=== PATIENT | female | born 1960 | race Hispanic/Latino ===

== ENCOUNTER 2017-10-14 13:07 | Inpatient (IN) | payer MEDICARE, OTHER ==
[~2017-10-14] VITALS: Ht 160 cm; Wt 147.0 kg
[~2017-10-14 13:07] MED LIST: AMBIEN5 MG PO; BACTRIM DS TAB1 EACH PO; CALCIUM PO; CENTRUM SILVER1 EAC3 PO; CEPHALEXIN500 MG PO; CLONAZEPAM0.5 MG PO; CYMBALTA60 MG PO; DICYCLOMINE HCL20 MG PO; FENTANYL1 EAC1 TD; FOLIC ACID PO; GABAPENTIN300 MG PO; LEVETIRACETAM250 MG PO; METOCLOPRAMIDE10 MG PO; MUPIROCIN22 GM TOP; NORCO 10-325 T1 EACH PO; ONDANSETRON ODT8 MG PO; PANTOPRAZOLE SO40 MG PO; PROBIOTIC PO; RIFAMPIN300 MG PO; VITAMIN B-12 PO; ZESTRIL20 MG PO
[2017-10-14] MEDS ORDERED: ONDANSETRON HCL 4 MG ORAL DISINTEGRATING TAB PO STA (13:09)
--- OUTSIDE RECORDS SUMMARY | 2017-10-14 13:10 | XMS REPORT ---
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 Saman Mendez OD Lora's palsy PRESBYOPIA 367.4 Active Saman Mendez OD Presbyopia EXAMINATION, DENTAL V72.2 Active Kit Landaverde DDS Special investigations and examinations - Dental examination DENTAL CARIES EXTENDING INTO DENTINE 521.02 Active Jess Upright DDS Dental caries extending into dentine EXAMINATION, DENTAL V72.2 Inactive Kit Landaverde DDS Special investigations and examinations - Dental examination EXAMINATION, DENTAL ICD-V72.2 Inactive Merle Redmond EXAMINATION, DENTAL V72.2 Inactive Jess Upright DDS Special investigations and examinations - Dental examination EXAMINATION, DENTAL ICD-V72.2 Inactive Jess Upright DDS EXAMINATION, DENTAL V72.2 Inactive Jess Upright DDS Special investigations and examinations - Dental examination EXAMINATION, DENTAL ICD-V72.2 Inactive Jess Upright DDS Medication List Medication Instructions Start Date Stop Date Generic Name ND Status Provider Patient Instruction AMBIEN TABS ZOLPIDEM TARTRATE TABS 35081419299 Active El Alvarenga MD Active BACTRIM TABS SULFAMETHOXAZOLE-TRIMETHOPRIM TABS 96993833441 Active El Alvarenga MD Active BENTYL TABS DICYCLOMINE HCL TABS 59855450562 Active El Alvarenga MD Active CEPHALEXIN TABS CEPHALEXIN TABS 03977064346 Active El Alvarenga MD Active CLONAZEPAM TABS CLONAZEPAM TABS 48997305262 Active El Alvarenga MD Active FENTANYL CITRATE POWD FENTANYL CITRATE 85129222837 Active El Alvarenga MD Active GABAPENTIN TABS GABAPENTIN TABS 20085660849 Active El Alvarenga MD Active KEPPRA TABS LEVETIRACETAM TABS 61868821376 Active El Alvarenga MD Active ONDANSETRON TBDP ONDANSETRON TBDP 10420873269 Active El Alvarenga MD Active PROTONIX PACK PANTOPRAZOLE SODIUM PACK 28481350056 Active El Alvarenga MD Active RIFAMPIN CAPS RIFAMPIN CAPS 59222080204 Active El Alvarenga MD Active HYDROCODONE-ACETAMINOPHEN TABS HYDROCODONE-ACETAMINOPHEN TABS 03856957649 Active Saman Mendez OD Active LISINOPRIL-HYDROCHLOROTHIAZIDE TABS LISINOPRIL- HYDROCHLOROTHIAZIDE TABS 34912836149 Active Saman Mendez OD Active FOLIC ACID 1 MG TABS 1 by mouth every day FOLIC ACID 36260936105 Active Jess Upright DDS Active AMOXICILLIN 500 MG CAPS 1 by mouth 3 times a day until all taken. AMOXICILLIN 500 MG CAPS 887034 AMOXICILLIN Inactive ALPRAZOLAM TABS ALPRAZOLAM TABS ALPRAZOLAM TABS Inactive MEDI-MECLIZINE TABS MEDI-MECLIZINE TABS MECLIZINE HCL TABS Inactive NEXIUM CPDR NEXIUM CPDR ESOMEPRAZOLE MAGNESIUM CPDR Inactive HYDROCODONE-ACETAMINOPHEN 5-325 MG TABS Take 1 tab Every 4-6h As Needed for pain. HYDROCODONE-ACETAMINOPHEN 5-325 MG TABS 317044 HYDROCODONE-ACETAMINOPHEN Inactive ZITHROMAX Z-SMITH 250 MG TABS Follow directions on package. ZITHROMAX Z-SMITH 250 MG TABS 316496 AZITHROMYCIN Inactive METFORMIN HCL 500 MG TABS 1 by mouth twice a day METFORMIN HCL 500 MG TABS 759721 METFORMIN HCL Inactive METOCLOPRAMIDE HCL TABS METOCLOPRAMIDE HCL TABS METOCLOPRAMIDE HCL TABS Inactive NEXIUM 40 MG CAPDR 1 by mouth daily NEXIUM 40 MG CAPDR 444893 ESOMEPRAZOLE MAGNESIUM Inactive AMOXICILLIN 500 MG CAPS 1 by mouth 3 times a day until all taken. AMOXICILLIN 29992621356 No Longer Active Kit Landaverde DDS Active ALPRAZOLAM TABS ALPRAZOLAM TABS 40693140071 No Longer Active El Alvarenga MD Active MEDI-MECLIZINE TABS MECLIZINE HCL TABS 88672080861 No Longer Active El Alvarenga MD Active NEXIUM CPDR ESOMEPRAZOLE MAGNESIUM CPDR 18581640701 No Longer Active El Alvarenga MD Active HYDROCODONE-ACETAMINOPHEN 5-325 MG TABS Take 1 tab Every 4-6h As Needed for pain. HYDROCODONE-ACETAMINOPHEN 49419749349 No Longer Active Kit Landaverde DDS Active ZITHROMAX Z-SMITH 250 MG TABS Follow directions on package. AZITHROMYCIN 58694199650 No Longer Active Kit Landaverde DDS Active METFORMIN HCL 500 MG TABS 1 by mouth twice a day METFORMIN HCL 51150159313 No Longer Active El Alvarenga MD Active METOCLOPRAMIDE HCL TABS METOCLOPRAMIDE HCL TABS 25653722727 No Longer Active El Alvarenga MD Active NEXIUM 40 MG CAPDR 1 by mouth daily ESOMEPRAZOLE MAGNESIUM 43618588852 No Longer Active El Alvarenga MD Active Vital Signs Date Name Value Unit Range Description blood pressure, diastolic 81 mm[Hg] BP abdul blood pressure, systolic 150 mm[Hg] BP sys pulse rate E&M 60 /min Heart rate blood pressure, diastolic 48 mm[Hg] BP abdul blood pressure, systolic 93 mm[Hg] BP sys pulse rate E&M 109 /min Heart rate Procedures Code Procedure Name Date Entry Date Standard Description CPT-44586 Est Patient Intermediate Opth - 90854 14:44:09 CDT 2015 CPT-50769 Dispensing Visit (UNLIVSTED OPHTHALMOLOGICAL SERVICE/PROCEDURE) 13:04:20 CDT CPT-10354 Est Patient Intermediate Opth - 40741 15:58:54 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
--- OUTSIDE RECORDS SUMMARY | 2017-10-14 13:11 | XMS REPORT ---
Author Author Admin, [place] Organization [facility] [place] [facility] Address [address] [address] Phone Allergies, Adverse Reactions, Alerts Allergy Name [...] Patient Instruction AMBIEN TABS ZOLPIDEM TARTRATE TABS 28725572720 Active El Alvarenga MD Active BACTRIM TABS SULFAMETHOXAZOLE-TRIMETHOPRIM TABS 15723482131 Active El Alvarenga MD Active BENTYL TABS DICYCLOMINE HCL TABS 36334187581 Active El Alvarenga MD Active CEPHALEXIN TABS CEPHALEXIN TABS 04183243623 Active El Alvarenga MD Active CLONAZEPAM TABS CLONAZEPAM TABS 22265163736 Active El Alvarenga MD Active FENTANYL CITRATE POWD FENTANYL CITRATE 34305463805 Active El Alvarenga MD Active GABAPENTIN TABS GABAPENTIN TABS 66350037639 Active El Alvarenga MD Active KEPPRA TABS LEVETIRACETAM TABS 05513789838 Active El Alvarenga MD Active ONDANSETRON TBDP ONDANSETRON TBDP 18876483092 Active El Alvarenga MD Active PROTONIX PACK PANTOPRAZOLE SODIUM PACK 47066728630 Active El Alvarenga MD Active RIFAMPIN CAPS RIFAMPIN CAPS 27935507574 Active El Alvarenga MD Active HYDROCODONE-ACETAMINOPHEN TABS HYDROCODONE-ACETAMINOPHEN TABS 42606356077 Active Saman Mendez OD Active LISINOPRIL-HYDROCHLOROTHIAZIDE TABS LISINOPRIL- HYDROCHLOROTHIAZIDE TABS 96914606498 Active Saman Mendez OD Active FOLIC ACID 1 MG TABS 1 by mouth every day FOLIC ACID 25586332416 Active Jess Upright DDS Active AMOXICILLIN 500 MG CAPS 1 by mouth 3 times a day until all taken. AMOXICILLIN 500 MG CAPS 014684 AMOXICILLIN Inactive ALPRAZOLAM TABS ALPRAZOLAM TABS ALPRAZOLAM TABS Inactive MEDI-MECLIZINE TABS MEDI-MECLIZINE TABS MECLIZINE HCL TABS Inactive NEXIUM CPDR NEXIUM CPDR ESOMEPRAZOLE MAGNESIUM CPDR Inactive HYDROCODONE-ACETAMINOPHEN 5-325 MG TABS Take 1 tab Every 4-6h As Needed for pain. HYDROCODONE-ACETAMINOPHEN 5-325 MG TABS 241578 HYDROCODONE-ACETAMINOPHEN Inactive ZITHROMAX Z-SMITH 250 MG TABS Follow directions on package. ZITHROMAX Z-SMITH 250 MG TABS 576677 AZITHROMYCIN Inactive METFORMIN HCL 500 MG TABS 1 by mouth twice a day METFORMIN HCL 500 MG TABS 478437 METFORMIN HCL Inactive METOCLOPRAMIDE HCL TABS METOCLOPRAMIDE HCL TABS METOCLOPRAMIDE HCL TABS Inactive NEXIUM 40 MG CAPDR 1 by mouth daily NEXIUM 40 MG CAPDR 040854 ESOMEPRAZOLE MAGNESIUM Inactive AMOXICILLIN 500 MG CAPS 1 by mouth 3 times a day until all taken. AMOXICILLIN 79807332233 No Longer Active Kit Landaverde DDS Active ALPRAZOLAM TABS ALPRAZOLAM TABS 55829568631 No Longer Active El Alvarenga MD Active MEDI-MECLIZINE TABS MECLIZINE HCL TABS 04199200152 No Longer Active El Alvarenga MD Active NEXIUM CPDR ESOMEPRAZOLE MAGNESIUM CPDR 77987531624 No Longer Active El Alvarenga MD Active HYDROCODONE-ACETAMINOPHEN 5-325 MG TABS Take 1 tab Every 4-6h As Needed for pain. HYDROCODONE-ACETAMINOPHEN 80469580392 No Longer Active Kit Landaverde DDS Active ZITHROMAX Z-SMITH 250 MG TABS Follow directions on package. AZITHROMYCIN 95887688820 No Longer Active Kit Landaverde DDS Active METFORMIN HCL 500 MG TABS 1 by mouth twice a day METFORMIN HCL 62967469745 No Longer Active El Alvarenga MD Active METOCLOPRAMIDE HCL TABS METOCLOPRAMIDE HCL TABS 06803874254 No Longer Active El Alvarenga MD Active NEXIUM 40 MG CAPDR 1 by mouth daily ESOMEPRAZOLE MAGNESIUM 81662836961 No Longer Active El Alvarenga MD Active [...] Procedure Name Date Entry Date Standard Description CPT-15714 Est Patient Intermediate Opth - 71532 14:44:09 CDT 2015 CPT-00291 Dispensing Visit (UNLIVSTED OPHTHALMOLOGICAL SERVICE/PROCEDURE) 13:04:20 CDT CPT-36918 Est Patient Intermediate Opth - 63634 15:58:54 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
[2017-10-14] MEDS ORDERED: ASPIRIN 81 MG CHEW TAB PO ONE (13:15)
[2017-10-14] MEDS ORDERED: SODIUM CHLORIDE 0.9% 1000ML 1,000 ML IV STA (13:35)
[2017-10-14 14:07] LABS: BASOPHILS % 0.2 % (0.0-1.0); EOSINOPHILS % 0.5 % (0.0-6.0); HEMATOCRIT 40.7 % (34.2-44.1); HEMOGLOBIN 12.7 g/dL (12.0-16.0); LYMPHOCYTES # (AUTO) 0.7 (1.0-3.2); MEAN CORPUSCULAR HEMOGLOBIN 27.6 pg (28-32); MEAN CORPUSCULAR HGB CONC 31.2 g/dL (31-35); MEAN CORPUSCULAR VOLUME 88.5 fL (81-99); MONOCYTES # (AUTO) 0.4 (0.2-0.8); MONOCYTES % 4.7 % (4.4-11.3); NEUTROPHILS % 85.2 % (38.7-80.0); PLATELET COUNT 302 x10e3/uL (140-360); RED CELL DISTRIBUTION WIDTH 16.4 % (11.7-14.4)
[2017-10-14 14:17] LABS: CLARITY,URINE SL CLOUDY (CLEAR); COLOR,URINE YELLOW (YELLOW)
[2017-10-14 14:18] LABS: LEUKOCYTE ESTERASE ,URINE 1+ (NEGATIVE)
[2017-10-14 14:19] LABS: BILIRUBIN,URINE 3+ (NEGATIVE); KETONES,URINE 1+ (NEGATIVE); NITRITE,URINE NEGATIVE (NEGATIVE); PROTEIN,URINE DIPSTICK 1+ (NEGATIVE); URINE UROBILINOGEN 1 mg/dL (0.2 - 1)
[2017-10-14 14:23] LABS: BACTERIA,URINE MANY /HPF; EPITHELIAL CELLS,URINE MANY /LPF; TRANSITIONAL EPI CELLS,URINE FEW; WBC,URINE (MAN) 21-50 /HPF (0-5)
[2017-10-14 14:27] LABS: INR 0.99; PROTHROMBIN TIME 12.3 seconds (11.9-14.5)
[2017-10-14 14:28] LABS: PARTIAL THROMBOPLASTIN TIME 22.8 seconds (23.8-35.5)
[2017-10-14 14:40] LABS: ALANINE AMINOTRANSFERASE 28 IU/L (0-55); ALBUMIN 3.7 g/dL (3.5-5.0); ALBUMIN/GLOBULIN RATIO 0.8 (0.8-2.0); ALKALINE PHOSPHATASE 204 IU/L (40-150); ANION GAP 15.7 mmol/L (8-16); BLOOD UREA NITROGEN 12 mg/dL (7-26); BUN/CREATININE RATIO 15 (6-25); CALCIUM 9.6 mg/dL (8.4-10.2); CARBON DIOXIDE 22 mmol/L (22-29); CHLORIDE 108 mmol/L (98-107); CREATINE KINASE 116 IU/L (29-168); CREATININE, SERUM 0.82 mg/dL (0.57-1.11); EST GLOMERULAR FILTRATION RATE > 60 ML/MIN (60-); GLUCOSE 102 mg/dL (74-118); POTASSIUM 4.7 mmol/L (3.5-5.1); SODIUM 141 mmol/L (136-145)
--- NOTE | 2017-10-14 15:29 | Diagnostic Imaging Report ---
PROCEDURE: CHEST SINGLE (PORTABLE); 1421 hrs. COMPARISON: Chest x-ray 11/26/2009. INDICATIONS: WEAKNESS. POST FALL FINDINGS: LUNGS: No mass or infiltrate. PLEURA: No effusions or pneumothorax. HEART \T\ MEDIASTINUM: Stable cardiomegaly. Central pulmonary vasculature is prominent suggestive of pulmonary venous hypertension. BONES \T\ SOFT TISSUES: No fracture or dislocation. Soft tissues are unremarkable. CONCLUSION: Cardiomegaly and pulmonary venous hypertension. No acute traumatic pathology by x-ray. Dictated by: Norbert Carrington M.D. on 10/14/2017 at 15:31 Electronically approved by: Norbert Carrington M.D. on 10/14/2017 at 15:31
[2017-10-14] MEDS ORDERED: SODIUM CHLORIDE 0.9% 1000ML 1,000 ML IV SCH (15:42)
[2017-10-14 15:45] LABS: THYROID STIMULATING HORMONE 0.271 uIU/mL (0.350-4.940)
[2017-10-14] MEDS ORDERED: ONDANSETRON HCL INJ 2 MG/ML VIAL IV PRN (15:45)
[2017-10-14] MEDS ORDERED: ALBUTEROL SULF 0.083% NEB SOLN 3 ML NEB NEB STA (15:54)
[2017-10-14] MEDS ORDERED: IPRATROPIUM BROMIDE 0.02% 2.5 ML NEB NEB STA (15:54)
[2017-10-14] MEDS ORDERED: CEFTRIAXONE SOD 1 GM VIAL IM ONE (16:00)
[2017-10-14] MEDS: CEFTRIAXONE SOD 1 GM VIAL IV SCH (16:13)
[2017-10-14] MEDS ORDERED: ONDANSETRON HCL 4 MG ORAL DISINTEGRATING TAB PO PRN (16:15)
--- OUTSIDE RECORDS SUMMARY | 2017-10-14 16:18 | XMS REPORT ---
Author Author Admin, [place] [facility] [place] [facility] [place] [address] [address] Phone Allergies, Adverse Reactions, Alerts Allergy Name [...] Patient Instruction AMBIEN TABS ZOLPIDEM TARTRATE TABS 09269788734 Active El Alvarenga MD Active BACTRIM TABS SULFAMETHOXAZOLE-TRIMETHOPRIM TABS 47089431878 Active El Alvarenga MD Active BENTYL TABS DICYCLOMINE HCL TABS 11007769210 Active El Alvarenga MD Active CEPHALEXIN TABS CEPHALEXIN TABS 04091983833 Active El Alvarenga MD Active CLONAZEPAM TABS CLONAZEPAM TABS 19606887179 Active El Alvarenga MD Active FENTANYL CITRATE POWD FENTANYL CITRATE 11167144755 Active El Alvarenga MD Active GABAPENTIN TABS GABAPENTIN TABS 62980247716 Active El Alvarenga MD Active KEPPRA TABS LEVETIRACETAM TABS 46961775056 Active El Alvarenga MD Active ONDANSETRON TBDP ONDANSETRON TBDP 43948035688 Active El Alvarenga MD Active PROTONIX PACK PANTOPRAZOLE SODIUM PACK 51633743695 Active El Alvarenga MD Active RIFAMPIN CAPS RIFAMPIN CAPS 27183530329 Active El Alvarenga MD Active HYDROCODONE-ACETAMINOPHEN TABS HYDROCODONE-ACETAMINOPHEN TABS 67960155603 Active Saman Mendez OD Active LISINOPRIL-HYDROCHLOROTHIAZIDE TABS LISINOPRIL- HYDROCHLOROTHIAZIDE TABS 09442321088 Active Saman Mendez OD Active FOLIC ACID 1 MG TABS 1 by mouth every day FOLIC ACID 58088770743 Active Jess Upright DDS Active AMOXICILLIN 500 MG CAPS 1 by mouth 3 times a day until all taken. AMOXICILLIN 500 MG CAPS 901938 AMOXICILLIN Inactive ALPRAZOLAM TABS ALPRAZOLAM TABS ALPRAZOLAM TABS Inactive MEDI-MECLIZINE TABS MEDI-MECLIZINE TABS MECLIZINE HCL TABS Inactive NEXIUM CPDR NEXIUM CPDR ESOMEPRAZOLE MAGNESIUM CPDR Inactive HYDROCODONE-ACETAMINOPHEN 5-325 MG TABS Take 1 tab Every 4-6h As Needed for pain. HYDROCODONE-ACETAMINOPHEN 5-325 MG TABS 411288 HYDROCODONE-ACETAMINOPHEN Inactive ZITHROMAX Z-SMITH 250 MG TABS Follow directions on package. ZITHROMAX Z-SMITH 250 MG TABS 325886 AZITHROMYCIN Inactive METFORMIN HCL 500 MG TABS 1 by mouth twice a day METFORMIN HCL 500 MG TABS 759612 METFORMIN HCL Inactive METOCLOPRAMIDE HCL TABS METOCLOPRAMIDE HCL TABS METOCLOPRAMIDE HCL TABS Inactive NEXIUM 40 MG CAPDR 1 by mouth daily NEXIUM 40 MG CAPDR 328804 ESOMEPRAZOLE MAGNESIUM Inactive AMOXICILLIN 500 MG CAPS 1 by mouth 3 times a day until all taken. AMOXICILLIN 58134170415 No Longer Active Kit Landaverde DDS Active ALPRAZOLAM TABS ALPRAZOLAM TABS 50562664484 No Longer Active El Alvarenga MD Active MEDI-MECLIZINE TABS MECLIZINE HCL TABS 08237124931 No Longer Active El Alvarenga MD Active NEXIUM CPDR ESOMEPRAZOLE MAGNESIUM CPDR 69666709679 No Longer Active El Alvarenga MD Active HYDROCODONE-ACETAMINOPHEN 5-325 MG TABS Take 1 tab Every 4-6h As Needed for pain. HYDROCODONE-ACETAMINOPHEN 32469178064 No Longer Active Kit Landaverde DDS Active ZITHROMAX Z-SMITH 250 MG TABS Follow directions on package. AZITHROMYCIN 21789409016 No Longer Active Kit Landaverde DDS Active METFORMIN HCL 500 MG TABS 1 by mouth twice a day METFORMIN HCL 04094322777 No Longer Active El Alvarenga MD Active METOCLOPRAMIDE HCL TABS METOCLOPRAMIDE HCL TABS 82345933267 No Longer Active El Alvarenga MD Active NEXIUM 40 MG CAPDR 1 by mouth daily ESOMEPRAZOLE MAGNESIUM 94078334434 No Longer Active El Alvarenga MD Active [...] Procedure Name Date Entry Date Standard Description CPT-31885 Est Patient Intermediate Opth - 65949 14:44:09 CDT 2015 CPT-12542 Dispensing Visit (UNLIVSTED OPHTHALMOLOGICAL SERVICE/PROCEDURE) 13:04:20 CDT CPT-54494 Est Patient Intermediate Opth - 02166 15:58:54 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
--- OUTSIDE RECORDS SUMMARY | 2017-10-14 16:18 | XMS REPORT ---
Author Author [facility] Address Unknown Phone Unavailable Care Team Providers Care Tube Maker Name Role Phone HALI PACHECO Unavailable Unavailable Problems This patient has no known problems. Allergies, Adverse Reactions, Alerts This patient has no known allergies or adverse reactions. Medications This patient has no known medications. 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 COMPARISON: Chest x-ray 11/26/2009. INDICATIONS: WEAKNESS. POST FALL FINDINGS: LUNGS: No mass or infiltrate. PLEURA: No effusions or pneumothorax. HEART T MEDIASTINUM: Stable cardiomegaly. Central pulmonary vasculature is prominent suggestive of pulmonary venous hypertension. BONES T SOFT TISSUES: No fracture or dislocation. Soft tissues are unremarkable. CONCLUSION : Cardiomegaly and pulmonary venous hypertension. No acute traumatic pathology by x-ray. Dictated by: Flakito Carrington M.D. on 10/14/2017 at 15:31 Electronically approved by: Flakito Carrington M.D. on 10/14/2017 at 15:31 Dictated By: FLAKITO CARRINGTON MD [id number] Transcribed By: DESIREE on 10/14 1531 COPY TO: HENRIK GUZMAN NP
[2017-10-14] MEDS ORDERED: NEXIUM40 MG PEG (16:21)
[2017-10-14] MEDS ORDERED: COMBIVENT RESPIM4 GM IH (16:21)
[2017-10-14] MEDS ORDERED: LOSARTAN POTAS100 MG PO (16:21)
[2017-10-14] MEDS ORDERED: MECLIZINE HCL12.5 MG PO (16:21)
[2017-10-14] MEDS ORDERED: NAPROXEN250 MG PO (16:21)
[2017-10-14] MEDS ORDERED: IPRATROPIUM/ALBUTEROL SULFATE 4 GM INH INH PRN (17:30)
[2017-10-14] MEDS: FUROSEMIDE INJ 10 MG/ML 2 ML VIAL IV SCH (17:57)
--- NOTE | 2017-10-14 18:25 | History and Physical ---
CHIEF COMPLAINT: Change in mental status. HISTORY OF PRESENT ILLNESS: This is a 56-year-old female with a past medical history of hypertension, obesity, chronic left knee infection, chronic pain syndrome, anxiety, psych issue, hyperlipidemia, who was in her usual state of health until patient brought by 2 family members to my office about change in mental status since 1 week. Patient was on too many pain medicines; so, family says they stopped giving her all this pain medicine, off of her oxycodone since 3 days. Patient is very confused since 1 week. No cough, no fever. No chest pain. No shortness of breath. Mild leg edema. She has some backache. No seizures, no focal weakness. Patient was not seen in my office for the last few months. ALLERGY: ALLERGIC TO TAPE AND ASPIRIN. PAST MEDICAL HISTORY 1. Hypertension. 2. Hyperlipidemia. 3. Morbid obesity. 4. Congestive heart failure. 5. Chronic pain syndrome. 6. Anxiety. 7. Chronic left knee infection. PAST SURGICAL HISTORY 1. History of bilateral total knee replacement. 2. Gastric bypass surgery for obesity. HABITS: Smokes cigarettes, half pack per day. Denies alcohol use. Denies illicit drug use. FAMILY HISTORY: Positive for hypertension and hyperlipidemia. SOCIAL HISTORY: Patient is single, lives with her mother. MEDICATION: List attached. REVIEW OF SYSTEMS CONSTITUTIONAL: Generalized fatigue and weakness. HEENT: No diplopia, no blurring of vision. CARDIOPULMONARY: No chest pain, no shortness of breath, no cough. ALIMENTARY: No nausea, no vomiting. GENITOURINARY: No dysuria, no hematuria. MUSCULOSKELETAL: No joint pains. CENTRAL NERVOUS SYSTEM: Nonfocal. Patient confused. No seizures. No focal weakness. PHYSICAL EXAMINATION GENERAL: A 56-year-old female who is alert but confused, sometimes drowsiness. VITAL SIGNS: Temperature 98.2, pulse 80, respiratory rate 18, blood pressure 160/89. HEENT: Head atraumatic and normocephalic. Pupils bilaterally equally reactive to light. Extraocular muscles intact. Neck supple. No JVD. No carotid bruit. LUNGS: Decreased breath sounds at both bases. HEART: S1 and S2. Regular rate and rhythm. No S3, no S4 or murmur. ABDOMEN: Soft, nontender. No guarding, no rigidity. Obese. EXTREMITIES: +1 pedal edema. Peripheral pulses +1. CENTRAL NERVOUS SYSTEM: Patient is confused. Grossly nonfocal. LABS: White count 8.25, hemoglobin 12.7, hematocrit 40.7, platelet 302. Sodium 141, potassium 4.7, BUN and creatinine normal. LFTs high. Free T4 is pending. Urine is RBC 6-10 and white count 21-50. CHEST X-RAY: CHF, cardiomegaly and pulmonary venous hypertension. ASSESSMENT 1. Change in mental status, possibly from overuse of pain medicine, anxiety medicine versus withdrawal of the medicine syndrome. 2. Urinary tract infection. 3. Hypertension. 4. Congestive heart failure. 5. Morbid obesity. 6. Chronic left knee infection. 7. Chronic pain syndrome. 8. Anxiety. PLAN: IV Rocephin 1 g q.12. Lasix 20 mg IV q.12. Cardiology consult. Pain Medicine consult. Psychiatry consult. Neurology consult. Continue home medicine except hold all pain medicine and anxiety medicine. Let her psychiatry, neurology and pain medicine doctors see the patient. They cannot do the CT in the ER because of her weight. Will also consult Pulmonary to see the possibility of obstructive sleep apnea. Lab BMP and free T4 in the morning. Will monitor patient. Case discussed with patient and family, told condition. Prognosis guarded. Job#: [id number]
[2017-10-14 19:20] VITALS: BP 198/89
[2017-10-14 20:00] VITALS: BP 198/89
[2017-10-14 20:09] LABS: PHENCYCLIDINE SCREEN,URINE NEGATIVE (NEGATIVE)
[2017-10-14 20:10] LABS: AMPHETAMINES SCREEN,URINE NEGATIVE (NEGATIVE); BENZODIAZEPINES SCREEN,URINE POSITIVE (NEGATIVE)
[2017-10-14 21:21] LABS: CREATINE KINASE MB 2.4 ng/mL (0-5.0)
--- NOTE | 2017-10-14 23:33 | Consultation ---
DATE OF CONSULTATION: October 14, 2017 NEUROLOGY CONSULTATION HISTORY OF PRESENT ILLNESS: Ms. Epps is a 56-year-old woman with past medical history significant for hypertension, hyperlipidemia, chronic pain, and seizure disorder, admitted to [facility] on October 14, 2017, with a 2- to 3-day history of worsening confusion and multiple falls. History is obtained from the patient as there are no family members at the bedside. Ms. Epps reports confusion over the past 2 to 3 days. When asked to describe her confusion, the patient reports thinking she was somewhere else rather than at home. Otherwise, the patient cannot further describe the confusion. The patient reports experiencing multiple falls over the past 2 to 3 days as well. Ms. Epps does not report dizziness. Specifically, she does not report lightheadedness or a vertiginous sensation. She does not report tripping over objects on the floor. She does not report walking over uneven ground, resulting in a missed step. As stated above, the patient has a known history of seizure disorder. There have been no witnessed seizures in the past 2 to 3 days. The patient does not endorse tongue biting or bladder/bowel incontinence. There are no bruises or abrasions anywhere on the patient's body to suggest any of her recent falls were the result of seizure activity. Ms. Epps states she has slept well for the past few days. She does endorse shortness of breath as well as hyperventilation. She endorses abdominal pain and diarrhea. She endorses burning on urination, urinary frequency, and urinary urgency. Ms. Epps endorses compliance with her antiepileptic medications, Keppra 500 mg by mouth twice daily and lamotrigine 100 mg by mouth twice daily. The patient's sister informed the patient she has taken extra doses of her medications over the past 2 to 3 days. When she was told this, Ms. Epps abruptly stopped taking all of her medications. REVIEW OF SYSTEMS: Shortness of breath, abdominal pain, diarrhea, burning on urination, urinary frequency, urinary urgency, confusion, and anxiety. Otherwise, a 12-point review of systems is negative. PAST MEDICAL HISTORY: Hypertension, hyperlipidemia, COPD, gastroesophageal reflux disease, depression and anxiety, epilepsy, prior right Lora's palsy, morbid obesity, benign brain tumor, chronic left knee infection. PAST SURGICAL HISTORY: Tumor resection with Dr. Kelvin Thompson in July 2016, bilateral knee replacements, gastric bypass in 2000. PAST HOSPITALIZATIONS: For surgeries and procedures listed, left knee infection. Ms. Epps has been hospitalized multiple other times, but cannot recall the reasons for these hospitalizations at present. FAMILY HISTORY: There is a strong family history of hypertension. The patient's father from liver cancer. SOCIAL HISTORY: The patient is single. She has her GED. Ms. 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 The patient does report current tobacco use. She smokes 1/2 pack of cigarettes per day. Ms. Epps does not report current or prior alcohol or recreational drug use. HOME MEDICATIONS 1. Keflex 500 mg by mouth every 8 hours. 2. Cymbalta 60 mg by mouth daily. 3. Nexium 40 mg by mouth twice daily. 4. Fentanyl patch, apply 1 patch to the skin once every 72 hours. 5. Gabapentin 300 mg by mouth three times daily. 6. [place] 10-325 mg 1 tablet by mouth every 6 hours as needed for pain. 7. Combivent 2 puffs every 4 hours as needed for shortness of breath. 8. Levetiracetam 500 mg my mouth twice daily. 9. Lamictal 100 mg by mouth twice daily. 10. Losartan 100 mg by mouth daily. 11. Meclizine 25 mg by mouth daily. 12. Reglan 10 mg by mouth three times daily. 13. Centrum silver multivitamin 1 tablet by mouth daily. 14. Naproxen 500 mg by mouth every 8 hours as needed for pain. 15. Zofran 8 mg by mouth twice daily as needed for nausea. 16. Protonix 40 mg by mouth daily. 17. Rifampin 300 mg by mouth twice daily. 18. Ambien 5 mg by mouth at bedtime. 19. Calcium. 20. Folic acid. 21. Probiotic. 22. Vitamin B12. ALLERGIES: ASPIRIN CAUSES HIVES. NO KNOWN FOOD ALLERGIES. NO KNOWN ALLERGIES TO LATEX. NO KNOWN ALLERGIES TO IODINE OR OTHER CONTRAST MATERIALS. MS. EPPS REPORTS SENSITIVITY TO PAPER TAPE. PHYSICAL EXAMINATION: VITAL SIGNS: Height 63 inches, weight 500 pounds, BMI 88.6 kg/m squared. Blood pressure 175/105 mmHg. Pulse is 70 beats per minute. Respiratory rate 21 breaths per minute. Oxygen saturation 99% on room air. GENERAL: The patient is awake and alert, does not appear distressed. Morbidly obese. HEENT: Normocephalic, atraumatic. Pupils are equal, round and reactive to light. Moist mucous membranes. NECK: Supple. No appreciable thyromegaly. No appreciable carotid bruits. CARDIOVASCULAR: S1, S2. Regular rate and rhythm. No murmurs, rubs, or gallops. RESPIRATORY: Clear to auscultation bilaterally no wheezes, rhonchi or rales. EXTREMITIES: The skin is warm and dry. No clubbing, cyanosis or edema. The posterior tibial and dorsalis pedis pulses are 1+ and symmetric. SKIN: No rashes or lesions. NEUROLOGIC Memory/Attention: The patient is awake and alert, oriented to person, place, time and situation. Cranial Nerves: Cranial nerve I - not tested. Cranial nerve II, III, IV, and - pupils are equal and round, react briskly to light (from 4 mm to 2 mm), extraocular movements intact, no nystagmus. Cranial nerve V - sensation to light touch and pinprick is intact in the bilateral V1 through V3 distributions. Strength of the temporalis and mastoid muscles is within normal limits. Cranial nerve VII - right facial asymmetry with moderate peripheral right facial weakness. Cranial nerve VIII - hearing is intact to finger rub bilaterally. Cranial nerve IX, X - the soft palate elevates equally and symmetrically. Cranial nerve XI - normal strength of the bilateral sternocleidomastoid and trapezius muscles. Cranial nerve XII - the tongue protrudes midline and moves symmetrically from side to side. Strength: Bulk is normal and strength is 5/5 in the bilateral deltoids, biceps, triceps, wrist flexors and extensors, finger flexors and extensors, intrinsic hand muscles hip flexors, knee flexors and extensors, ankle dorsiflexion and plantarflexion and intrinsic foot muscles except as follows: Effort dependent weakness of the right deltoid muscle secondary to pain. Tone is normal. DTRs: Deep tendon reflexes are 1+ and symmetric at the triceps, biceps, and brachioradialis. Deep tendon reflexes are absent and symmetric at the patellas and Achilles. The plantar responses are flexor bilaterally. Absent clonus. Sensation: Sensation is intact to light touch and pinprick in both arms and both legs. Cerebellar: Jmcklz-gtnq-gugllm and heel-gill movements are intact without dysmetria or other impairment. Rapid alternating movements are intact. Gait: Deferred. Speech: Spontaneous speech is normal without appreciable dysarthria or aphasia. Repetition is intact. Involuntary Movements: None. Pronator Drift: None. LABORATORY DATA: Sodium 141, potassium 4.7, chloride 108, carbon dioxide 22, anion gap 15.7, BUN 12, creatinine 0.82, estimated GFR greater than 60, BUN to creatinine ratio 15, glucose 102. Calcium 9.6. Total bilirubin 0.4, AST 45, ALT 28, alkaline phosphatase 204, total protein 8.5, albumin 3.7, globulin 4.8, albumin to globulin ratio 0.8. Creatine kinase 116, CK-MB 2.5, troponin I 0.001. B-type natriuretic peptide 45.5. TSH 0.371, free T4 0.96. CBC with differential and platelets reveals a white blood cell count of 8.25 with a left shift. The hemoglobin and hematocrit are 12.7 and 40.7, respectively. The platelet count is 302,000. PT 12.3, INR 0.99, PTT 22.8. Urinalysis reveals 1+ protein, 1+ ketones, 2+ blood, 3+ bilirubin, 1+ leukocyte esterase, 6 to 10 red blood cells, 21 to 50 white blood cells with many bacteria. DIAGNOSTIC STUDIES: Chest x-ray, October 14, 2017: Cardiomegaly and pulmonary venous hypertension. No acute traumatic pathology by x-ray. ASSESSMENT AND PLAN: Ms. Epps is a 56-year-old woman with an extensive past medical history, admitted to [facility] with a 2- to 3-day history of confusion and multiple falls. The patient's neurological examination is nonfocal with the exception of findings compatible with her prior history of right Lora's palsy. The patient's laboratory data and diagnostic studies have been reviewed and are documented above. There are multiple potential causes of the patient's metabolic encephalopathy. Firstly, the patient does have a urinary tract infection. An infection of any type may lead to worsening confusion. Secondly, the patient endorses shortness of breath and hyperventilation for the past 2 to 3 days. Her oxygen saturation upon her arrival in the emergency center was 93% on room air. Hypoxia may be a contributing factor to the patient's metabolic encephalopathy. Thirdly, Ms. Epps's sister recently informed the patient she has taken extra doses of all of her medications. Among the patient's home medications are fentanyl, gabapentin, [place], Keppra, lamotrigine, meclizine, and Zofran. Any or all of these medications may cause dizziness or drowsiness as side effects and may contribute to the patient's worsening confusion and multiple falls over the past 2 to 3 days. Lastly, if the patient has experienced unwitnessed seizure activity over the past 2 to 3 days, her worsening confusion could be partly attributed to a postictal state. I contacted the patient's pharmacy to confirm the doses on her antiepileptic medications. The pharmacy did confirm the patient was taking Keppra 500 mg by mouth twice daily. However, the patient has not refilled her prescription for lamotrigine 100 mg by mouth twice daily since March 2017. Medication noncompliance, if present, could lead to breakthrough seizure activity. As mentioned above, the patient does have a urinary tract infection. An infection of any type will lower the seizure threshold and could lead to breakthrough seizures. Ms. Epps reported abruptly stopped taking all of her medications on the day prior to admission. Abrupt cessation of her antiepileptic medications could lead to a breakthrough seizures as well. RECOMMENDATIONS: 1. Laboratory data will be obtained to evaluate for other possible causes of metabolic encephalopathy. This includes: A urine drug screen, lamotrigine level, Keppra level, ammonia level, vitamin B12 level and RPR. 2. A CT of the brain without contrast will be ordered to evaluate for recent large territorial ischemia, hemorrhage or other acute PLANT OPERATIONS MANAGER pathology which may contribute to the patient's metabolic encephalopathy. 3. Continue the patient's current antiepileptic medications for seizure prophylaxis. Tomorrow, I will contact the patient's outpatient neurologist, Dr. Maya Lee, to inform her of the patient's admission and to verify her antiepileptic medications. 4. Continue with current antibiotics for treatment of the patient's urinary tract infection. 5. Limit the use of sedative/hypnotic and pain medications as these medications will alter the patient's sensorium. 6. Defer treatment of the remaining medical comorbidities to the primary and other services. Thank you for this consultation. I will continue to follow this patient while she remains in the hospital. TIME SPENT: 50 minutes. Job#: [id number] LYNDSEY FULLER
[2017-10-15] VITALS (9 sets, daily range): BP systolic 160–189; BP diastolic 70–87
[2017-10-15] MEDS ORDERED: PANTOPRAZOLE 40 MG 10ML VIAL IV STA (01:57)
[2017-10-15] MEDS ORDERED: ONDANSETRON HCL INJ 2 MG/ML VIAL IV PRN (02:00)
[2017-10-15] MEDS ORDERED: PANTOPRAZOLE SOD 40 MG TABEC PO ONE (02:15)
[2017-10-15] MEDS ORDERED: CEFTRIAXONE SOD 1 GM VIAL IV SCH (04:00)
[2017-10-15] MEDS: CEFTRIAXONE SOD 1 GM VIAL IV SCH ×2 (04:18→16:39)
[2017-10-15 06:46] LABS: BASOPHILS % 0.2 % (0.0-1.0); EOSINOPHILS # (AUTO) 0.1 (0.0-0.4); EOSINOPHILS % 1.2 % (0.0-6.0); HEMATOCRIT 35.2 % (34.2-44.1); HEMOGLOBIN 10.8 g/dL (12.0-16.0); LYMPHOCYTES # (AUTO) 0.9 (1.0-3.2); LYMPHOCYTES % 10.1 % (18.0-39.1); MEAN CORPUSCULAR HEMOGLOBIN 27.3 pg (28-32); MEAN CORPUSCULAR HGB CONC 30.7 g/dL (31-35); MEAN CORPUSCULAR VOLUME 88.9 fL (81-99); MONOCYTES # (AUTO) 0.6 (0.2-0.8); MONOCYTES % 6.7 % (4.4-11.3); NEUTROPHILS % 81.4 % (38.7-80.0); PLATELET COUNT 281 x10e3/uL (140-360); RED BLOOD COUNT 3.96 x10e6/uL (3.6-5.1); RED CELL DISTRIBUTION WIDTH 16.1 % (11.7-14.4)
[2017-10-15 07:15] LABS: CREATINE KINASE MB 2.9 ng/mL (0-5.0)
[2017-10-15 07:54] LABS: ALANINE AMINOTRANSFERASE 21 IU/L (0-55); ALBUMIN 3.2 g/dL (3.5-5.0); ALBUMIN/GLOBULIN RATIO 1.1 (0.8-2.0); ALKALINE PHOSPHATASE 157 IU/L (40-150); ANION GAP 14.7 mmol/L (8-16); BLOOD UREA NITROGEN 10 mg/dL (7-26); BUN/CREATININE RATIO 13 (6-25); CALCIUM 8.5 mg/dL (8.4-10.2); CARBON DIOXIDE 26 mmol/L (22-29); CHLORIDE 108 mmol/L (98-107); CREATININE, SERUM 0.77 mg/dL (0.57-1.11); EST GLOMERULAR FILTRATION RATE > 60 ML/MIN (60-); GLUCOSE 111 mg/dL (74-118); POTASSIUM 3.7 mmol/L (3.5-5.1); SODIUM 145 mmol/L (136-145)
--- NOTE | 2017-10-15 08:45 | Consultation ---
DATE OF CONSULTATION: October 15, 2017 REASON FOR CONSULTATION: Possible CHF. HPI: This is a morbidly obese 56-year-old female that presented with shortness of breath. According to the patient and family, recently she has had multiple falls, very confused, unable to move around. She went to her PCP and she was sent to the emergency room for evaluation. She also complained of generalized weakness and left leg pain that has been going on. She was on multiple pain medications for chronic pain. She denied any chest pain, any palpitations, any diaphoresis, or dizziness. Troponin was negative. EKG showed normal sinus rhythm with no S/T abnormalities. BNP 485. Chest x-ray showed cardiomegaly and pulmonary venous hypertension. PAST MEDICAL HISTORY: Obesity, asthma, cellulitis to the left leg, multiple falls, hypertension, PE, obstructive sleep apnea, UTI. PAST SURGICAL HISTORY: Gastric bypass, left knee replacement surgery, right leg surgery. FAMILY HISTORY: Positive for hypertension and cancer. SOCIAL HISTORY: She lives at home with the family. She smokes half a pack of cigarettes daily. MEDICATIONS: She is on multiple medications. See chart. ALLERGIES: SHE IS ALLERGIC TO ASPIRIN AND TAPE. REVIEW OF SYSTEMS: Negative except those mentioned above. Positive for shortness of breath and falls. PHYSICAL EXAMINATION VITAL SIGNS: Temperature 97, heart rate 60, blood pressure 162/87, respirations 22, oxygen saturation 97% on room air. GENERAL: She is morbidly obese, awake, alert, and oriented times 3. HEENT: Mucous membranes moist. NECK: Supple. LUNGS: Bilateral clear to auscultation. CARDIOVASCULAR: S1 and S2 present. ABDOMEN: Soft. NEUROLOGICAL: Intact. EXTREMITIES: With bilateral lower with trace edema. LABS: Sodium 141, potassium 4.7, chloride 108, CO2 22, BUN 12, creatinine 0.82, glucose 102. White blood cells 8.54, hemoglobin 10.8, hematocrit 35.2, and platelets 281,000. PT 12.3, PTT 22.8 and INR 0.99. IMPRESSION 1. Possible congestive heart failure. 2. Left leg pain. 3. Hypertension. 4. Obesity. 5. Urinary tract infection. 6. History of multiple falls. ASSESSMENT AND PLAN: Due to the shortness of breath and history of pulmonary embolism in the past, will go ahead and get a computerized tomography of chest to rule out any pulmonary embolism. Will get an echocardiogram to assess the left ventricle and the valve function. Will continue diuretics and ARB. Will get left leg venous Doppler to rule out any deep venous thrombosis. Further cardiac workup pending the outcome of the echocardiogram and left leg venous Doppler. Thank you for this consultation. DICTATED BY BERNY ESTRADA NP Job#: [id number] [facility]
[2017-10-15] MEDS ORDERED: LAMOTRIGINE 100 MG TAB PO SCH (09:00)
[2017-10-15] MEDS ORDERED: NON-FORMULARY MEDICATION (Duloxetine Hcl (Cymbalta) 60 MG) PO SCH (09:00)
[2017-10-15 09:24] LABS: % IRON SATURATION 7 % (15-50); IRON 25 ug/dL (50-170); TOTAL IRON BINDING CAPACITY 378 ug/dL (261-478); TRANSFERRIN 270 mg/dL (180-382)
[2017-10-15 10:07] LABS: ABG HCO3 29 mmol/L (23-28); ABG PCO2 43 mmHg (41-51); ABG PH 7.44 (7.31-7.41); ABG PO2 59 mmHg (80-105)
--- NOTE | 2017-10-15 10:13 | Consultation ---
DATE OF CONSULTATION: October 15, 2017 PULMONARY CONSULTATION This is a patient of Dr. Nehemias Abrams, Dr. Padgett, Dr. Schmid, Dr. Reeves, Dr. Ford. This charming, but unfortunate, 56-year-old woman was admitted from Dr. Abrams's office with disorientation, vomiting and confusion. She has a history of diabetes, hypertension, congestive heart failure. History of snoring, obstructive sleep apnea, unable to use CPAP, chronic left knee infection for approximately 2-1/2 years after knee replacement surgery. She has had successful right knee replacement 5 years ago. She has chronic pain. SHE IS ALLERGIC TO ASPIRIN. Home medications include Keflex, Nexium, fentanyl, Neurontin, Vicodin, meclizine, Reglan, Naprosyn, Ambien, Keppra, DuoNeb, losartan, Protonix. She has had gastric bypass, which was initially successful only. She has had knee replacements. Ex-smoker, quit recently. Smoked less than a pack per day for 30 years. 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 Born in [facility]. Denies alcohol use. She lives with her mother. Family history is positive for hypertension. PHYSICAL EXAMINATION GENERAL: She is a morbidly obese white female in no acute distress, complaining of some dyspnea. VITALS: Temperature 96.7, pulse 60, respirations 24, blood pressure 162/80. HEAD: Normocephalic and atraumatic. EYES: The extraocular movements are intact. LUNGS: Wheezing in all lung ruiz. HEART: Regular rhythm. ABDOMEN: Nontender. EXTREMITIES: Not edematous, but obese. Scar. IMPRESSION 1. Acute exacerbation of chronic obstructive pulmonary disease exacerbated by congestive heart failure. 2. Obstructive sleep apnea. 3. Possible adverse reaction to pain medications. This is not clear. PLAN: Check spirometry. CT angio was recommended, but she is too big for our equipment. Consider venous Doppler. Echocardiogram is pending. Trial of BiPAP and bronchodilators. She has anemia, presumably of chronic disease. Check iron levels. Labile blood sugars. Dietary intervention should also be considered. Low-dose prednisone. Thank you for this kind referral. Job#: [id number]
[2017-10-15] MEDS: IPRATROPIUM/ALBUTEROL SULFATE 4 GM INH INH SCH ×3 (11:00→19:05)
[2017-10-15] MEDS: LOSARTAN POTASSIUM 100 MG TAB PO SCH (11:03)
[2017-10-15] MEDS: FUROSEMIDE INJ 10 MG/ML 2 ML VIAL IV SCH (11:03)
[2017-10-15] MEDS: DULOXETINE HCL 30 MG DELAYED RELEASE PO SCH (11:03)
[2017-10-15] MEDS: RIFAMPIN 300 MG CAP PO SCH ×2 (11:04→17:17)
[2017-10-15] MEDS: PANTOPRAZOLE SOD 40 MG TABEC PO SCH (11:04)
[2017-10-15] MEDS: SUCRALFATE 1 GM/10 ML SUSP NG SCH ×3 (11:04→21:12)
[2017-10-15] MEDS: LEVETIRACETAM 500 MG TAB PO SCH ×2 (11:04→17:17)
[2017-10-15] MEDS: PREDNISONE 20 MG TAB PO SCH (11:04)
[2017-10-15] MEDS: LAMOTRIGINE 100 MG TAB PO SCH (17:17)
[2017-10-15] MEDS: ENOXAPARIN SOD INJ 40 MG/0.4 ML SYR SC SCH (17:17)
--- NOTE | 2017-10-15 17:55 | Consultation ---
DATE OF CONSULTATION: October 15, 2017 PSYCHIATRIC CONSULTATION REASON FOR CONSULTATION: To evaluate patient's frequent falls and psychosis. HISTORY OF PRESENTING ILLNESS: The patient is a 56-year-old female admitted to the hospital for frequent falls, UTI. Psychiatric consultation is called to evaluate patient's psychosis and altered mental status. As per the medical record, patient has history of hypertension, obesity, chronic left knee infection, chronic pain syndrome, anxiety, psych issues, hyperlipidemia. Patient was brought in by 2 family members for change in mental status. As per note, she was on too many pain medications; so, family members stopped giving her pain meds. She was out of her hydrocodone for 3 days. Patient was confused for about 1 week. Upon evaluation today, patient is found to be lying in the bed. She is alert, awake and oriented to situation. Patient is not confused. Patient claims that she took medication twice by accident and when she was taken to her doctor's clinic, she was found to be confused and was recommended to be taken to the hospital. Patient denies taking pain medication regularly. She denies any nausea or vomiting at this time, but she did admit to having diarrhea. She reports some depression due to weight gain. She claims that she recently had gastric bypass but had gained all the weight back. She admits to having intermittent sleep issues but denies any suicidal ideation. She denies any hallucination. She denies any feeling of hopelessness or helplessness. She is not confused, and she denies that overdose was due to suicide attempt. Again, she denies that the overdose was for self-harm. Per the nursing staff, nurse reports that patient has not received any pain medication. She was confused yesterday during admission but she is doing better now. Patient has not been combative or agitated. Patient is still waiting to be seen by pain management. PAST PSYCHIATRIC HISTORY: Patient states that she has seen a psychiatrist but does not know the diagnosis although she is on Cymbalta and claimed that she saw the psychiatrist for depression. She denies past suicide attempt. She denies alcohol and drug use. FAMILY HISTORY: Patient denies any family history of psychiatric illness. SOCIAL HISTORY: Patient states she lives with her mother. MENTAL STATUS EXAMINATION: The patient is an elderly female who is obese. She is alert, awake and oriented to situation. Her mood is depressed. She denies any suicidal or homicidal ideation. She denies any hallucination. Thought process is concrete. She does not elicit paranoia or delusional thinking. Insight and judgment are fair. No delusion elicited, no agitation. CURRENT MEDICATION 1. Prednisone. 2. Docusate. 3. Keppra 500 mg p.o. b.i.d. for seizures. 4. Rifampin. 5. Pantoprazole. 6. Cymbalta 60 mg p.o. daily. 7. Losartan. 8. Furosemide. 9. Ceftriaxone. 10. Ondansetron. 11. Lamictal 200 mg p.o. b.i.d. 12. Budesonide. 13. Enoxaparin. CURRENT LAB: WBC is 8.54, RBC is 3.96, hemoglobin 10.8, hematocrit 35.2, platelets 281. Chemistry: Sodium 145, potassium 3.7, chloride 108, CO2 26, BUN 10, creatinine 0.77. AST 18, ALT 21. Toxicology positive for benzo. Urine seen to be positive for leukocyte, red blood cell, white blood cell, bacteria. ASSESSMENT: Major depressive disorder, recurrent, mild to moderate; opioid use/obese. PLAN 1. Continue with Cymbalta 60 mg p.o. daily. 2. Keppra and Lamictal for seizure as per Neurology and Medical. 3. Discuss with nursing staff. 4. Further medication to be adjusted. 5. Recommend minimizing pain medication as much as possible . Thank you for this consultation. Dictated by: KENDELL Nichols Job#: [id number]
[2017-10-15] MEDS: BUDESONIDE/FORMOTEROL 160/4.5MCG INHALER INH SCH (19:05)
[2017-10-15] MEDS ORDERED: HALOPERIDOL LACTATE 5 MG/ML VIAL IM PRN (19:45)
[2017-10-15] MEDS ORDERED: QUETIAPINE FUMARATE 25 MG TAB PO PRN (19:45)
[2017-10-15] MEDS ORDERED: LORAZEPAM 0.5 MG TAB PO PRN (19:45)
[2017-10-15] MEDS: TRAMADOL HCL 50 MG TAB PO PRN (20:31)
[2017-10-16] MEDS: CEFTRIAXONE SOD 1 GM VIAL IV SCH ×2 (03:39→14:45)
[2017-10-16 05:00] VITALS: BP 176/79
[2017-10-16] MEDS: BUDESONIDE/FORMOTEROL 160/4.5MCG INHALER INH SCH ×2 (06:49→20:25)
[2017-10-16] MEDS: IPRATROPIUM/ALBUTEROL SULFATE 4 GM INH INH SCH ×4 (06:49→20:24)
[2017-10-16 07:49] VITALS: BP 164/81
[2017-10-16] MEDS: FUROSEMIDE INJ 10 MG/ML 2 ML VIAL IV SCH ×2 (08:28→16:38)
[2017-10-16] MEDS: SUCRALFATE 1 GM/10 ML SUSP NG SCH ×4 (08:28→21:26)
[2017-10-16] MEDS: DULOXETINE HCL 30 MG DELAYED RELEASE PO SCH (08:29)
[2017-10-16] MEDS: PANTOPRAZOLE SOD 40 MG TABEC PO SCH (08:29)
[2017-10-16] MEDS: LEVETIRACETAM 500 MG TAB PO SCH ×2 (08:29→16:39)
[2017-10-16] MEDS: LAMOTRIGINE 100 MG TAB PO SCH ×2 (08:29→16:39)
[2017-10-16] MEDS: LOSARTAN POTASSIUM 100 MG TAB PO SCH (08:29)
[2017-10-16] MEDS: PREDNISONE 20 MG TAB PO SCH (08:29)
[2017-10-16] MEDS: RIFAMPIN 300 MG CAP PO SCH ×2 (08:29→16:39)
[2017-10-16] MEDS: TRIAMTERENE/HCTZ 37.5-25 MG TAB PO SCH (11:02)
[2017-10-16 11:17] VITALS: BP 186/90
[2017-10-16] MEDS: CHOLESTYRAMINE 4 GM PACKET PO PRN ×2 (13:50→18:42)
[2017-10-16] MEDS: METRONIDAZOLE 500 MG TAB PO SCH ×2 (14:04→21:27)
[2017-10-16] MEDS: HYDRALAZINE HCL 20 MG/ML VIAL IV PRN (16:30)
[2017-10-16] MEDS: ENOXAPARIN SOD INJ 40 MG/0.4 ML SYR SC SCH (16:39)
[2017-10-16] MEDS: LACTOBACILLUS ACIDOPHILUS CAPSULE PO SCH (16:39)
--- NOTE | 2017-10-16 17:25 | Diagnostic Imaging Report ---
EXAM: Abdomen, one view INDICATION: Pain. COMPARISON: None available. FINDINGS: LINES: None. Bowel: No air fluid levels.. No pneumoperitoneum.. Moderate amount of retained feces and air are noted in the colon and rectum. No calcifications project over the renal shadows, expected course of the ureters bilaterally, and bladder. Soft tissues: Surgical clips are present in the epigastric region. Bones: No acute osseous abnormality. Degenerative changes of the lumbar spine and pelvis. Impression: No acute radiographic abnormality. Signed by: Dr. Kvng Cook M.D. on 10/16/2017 5:22 PM
[2017-10-16 19:30] VITALS: BP 153/77
[2017-10-16 21:05] VITALS: BP 153/77
[2017-10-17] VITALS: BP 155/70
[2017-10-17 00:52] VITALS: BP 155/70
[2017-10-17] MEDS: CEFTRIAXONE SOD 1 GM VIAL IV SCH ×2 (03:08→15:40)
[2017-10-17] MEDS ORDERED: PANTOPRAZOLE 40 MG 10ML VIAL IV STA (03:17)
[2017-10-17] MEDS: PANTOPRAZOLE 40 MG 10ML VIAL IV SCH ×2 (04:30→15:40)
[2017-10-17 05:00] VITALS: BP 176/90
[2017-10-17] MEDS: METRONIDAZOLE 500 MG TAB PO SCH ×2 (05:41→13:00)
[2017-10-17] MEDS: HYDRALAZINE HCL 20 MG/ML VIAL IV PRN (06:35)
[2017-10-17] MEDS: IPRATROPIUM/ALBUTEROL SULFATE 4 GM INH INH SCH ×4 (06:38→20:15)
[2017-10-17] MEDS: BUDESONIDE/FORMOTEROL 160/4.5MCG INHALER INH SCH ×2 (06:38→20:15)
[2017-10-17 07:11] LABS: BASOPHILS % 0.2 % (0.0-1.0); EOSINOPHILS # (AUTO) 0.1 (0.0-0.4); EOSINOPHILS % 0.7 % (0.0-6.0); HEMATOCRIT 40.3 % (34.2-44.1); HEMOGLOBIN 12.7 g/dL (12.0-16.0); LYMPHOCYTES # (AUTO) 1.3 (1.0-3.2); LYMPHOCYTES % 14.9 % (18.0-39.1); MEAN CORPUSCULAR HEMOGLOBIN 27.1 pg (28-32); MEAN CORPUSCULAR HGB CONC 31.5 g/dL (31-35); MEAN CORPUSCULAR VOLUME 86.1 fL (81-99); MONOCYTES # (AUTO) 0.8 (0.2-0.8); MONOCYTES % 9.3 % (4.4-11.3); NEUTROPHILS # (AUTO) 6.6 (2.1-6.9); NEUTROPHILS % 74.6 % (38.7-80.0); PLATELET COUNT 327 x10e3/uL (140-360); RED BLOOD COUNT 4.68 x10e6/uL (3.6-5.1); RED CELL DISTRIBUTION WIDTH 15.4 % (11.7-14.4)
[2017-10-17 07:50] LABS: ALANINE AMINOTRANSFERASE 16 IU/L (0-55); ALBUMIN 3.4 g/dL (3.5-5.0); ALBUMIN/GLOBULIN RATIO 0.9 (0.8-2.0); ALKALINE PHOSPHATASE 137 IU/L (40-150); ANION GAP 17.7 mmol/L (8-16); BLOOD UREA NITROGEN 9 mg/dL (7-26); BUN/CREATININE RATIO 11 (6-25); CALCIUM 9.3 mg/dL (8.4-10.2); CARBON DIOXIDE 30 mmol/L (22-29); CHLORIDE 96 mmol/L (98-107); CREATININE, SERUM 0.83 mg/dL (0.57-1.11); EST GLOMERULAR FILTRATION RATE > 60 ML/MIN (60-); GLUCOSE 100 mg/dL (74-118); SODIUM 141 mmol/L (136-145)
[2017-10-17 08:04] LABS: POTASSIUM 2.7 mmol/L (3.5-5.1)
[2017-10-17 08:11] VITALS: BP 161/77
[2017-10-17] MEDS: SUCRALFATE 1 GM/10 ML SUSP NG SCH ×4 (08:30→21:16)
[2017-10-17] MEDS ORDERED: SODIUM CHLORIDE 0.9% 250ML 250 ML ONE (08:57)
[2017-10-17] MEDS ORDERED: POTASSIUM CHLORIDE 20MEQ/100ML 200 ML IV ONE ×2 (09:00→14:30)
[2017-10-17] MEDS: FUROSEMIDE INJ 10 MG/ML 2 ML VIAL IV SCH (09:25)
[2017-10-17] MEDS: DULOXETINE HCL 30 MG DELAYED RELEASE PO SCH (09:25)
[2017-10-17] MEDS: LEVETIRACETAM 500 MG TAB PO SCH ×2 (09:25→16:48)
[2017-10-17] MEDS: LAMOTRIGINE 100 MG TAB PO SCH ×2 (09:25→16:48)
[2017-10-17] MEDS: LOSARTAN POTASSIUM 100 MG TAB PO SCH (09:25)
[2017-10-17] MEDS: PREDNISONE 20 MG TAB PO SCH (09:25)
[2017-10-17] MEDS: LACTOBACILLUS ACIDOPHILUS CAPSULE PO SCH ×2 (09:25→16:48)
[2017-10-17] MEDS: RIFAMPIN 300 MG CAP PO SCH ×2 (09:25→16:48)
[2017-10-17] MEDS: TRIAMTERENE/HCTZ 37.5-25 MG TAB PO SCH (09:25)
[2017-10-17] MEDS ORDERED: POTASSIUM CHLORIDE 20 MEQ TAB CR PO ONE ×2 (12:30→15:30)
[2017-10-17] MEDS: CARVEDILOL 12.5 MG TAB PO SCH (16:48)
[2017-10-17] MEDS: ENOXAPARIN SOD INJ 40 MG/0.4 ML SYR SC SCH (16:48)
--- NOTE | 2017-10-17 17:36 | Consultation ---
DATE OF CONSULTATION: October 17, 2017 REASON FOR CONSULTATION: UTI with multidrug resistance. HISTORY OF PRESENT ILLNESS: This patient is a very pleasant, 56-year-old female, who was admitted originally with altered mental status. The patient has a history of hypertension, morbidly obese patient, chronic left knee infection, chronic pain syndrome, anxiety, psych disorder, hyperlipidemia. The patient apparently was in her usual state until about a couple of days before she came here or a week when the family noted that she was confused. The patient was brought for altered mental status. It was noticed she was taking several pain medications. They stopped giving her pain medications. She became confused since a week. No fever, no chills. Patient was admitted. She is currently more alert and oriented. However, her urine culture is showing 3 pathogens, all multidrug resistant. The patient is currently alert and oriented. She is telling me she has been having some urgency and frequency and some suprapubic discomfort for a few days before she came here. She still has some at the present time, but no fever and no chills. PAST MEDICAL HISTORY: Morbidly obese patient, hypertension, hyperlipidemia, congestive heart failure, chronic pain syndrome, anxiety, chronic left kidney infection. PAST SURGICAL HISTORY: History of bilateral total knee replacement and gastric bypass surgery for obesity. ALLERGIES: NKA. SOCIAL HISTORY: She smokes about half a pack per day. No drug abuse or alcohol abuse. FAMILY HISTORY: Hypertension, hyperlipidemia. REVIEW OF SYSTEMS AT THE PRESENT TIME HEENT: There is no headache, visual changes or hearing changes. GI: There is no nausea, no vomiting, no diarrhea. CARDIAC: There is no arrhythmia. NEURO: No seizure activity. SKIN: There is no rash. MEDICATIONS: She is on Coreg, lactobacillus, Lovenox, Maxzide, prednisone 20 mg daily, Cymbalta, Cozaar, Symbicort, Rocephin, rifampin, and metronidazole. PHYSICAL EXAMINATION GENERAL: She is currently alert and oriented. Morbidly obese patient. VITALS: Stable, currently afebrile. HEENT: She is not icteric. NECK: Supple. CHEST: Clear. HEART: S1, S2. No murmur. ABDOMEN: Soft, obese. EXTREMITIES: The knee has no erythema or edema. IMPRESSION 1. Urinary tract infection, cystitis, with multidrug-resistant pathogen. Suggest to put her on meropenem 500 IV q.6 h. She probably will need 3 days. 2. There is history of chronic infection of the knee. She is on rifampin, which is unusual to suppress treatment. I would like to get further information. 3. Morbidly obese patient. 1. Chronic pain syndrome. 2. Will discuss with you. Job#: [id number]
[2017-10-17] MEDS: MEROPENEM 500 MG VIAL IV SCH (18:00)
[2017-10-17] MEDS ORDERED: MEROPENEM 500MG 500 MG in SODIUM CHLORIDE 0.9% 50ML 50 ML IV SCH (18:00)
[2017-10-17 19:15] VITALS: BP 117/69
[2017-10-17 21:00] VITALS: BP 117/69
[2017-10-17 23:01] LABS: WBC,FECAL (FECAL LACTOFERRIN) POSITIVE (NEGATIVE)
[2017-10-18] VITALS (7 sets, daily range): BP systolic 118–161; BP diastolic 68–86
[2017-10-18] MEDS: MEROPENEM 500 MG VIAL IV SCH ×2 (00:16→05:30)
[2017-10-18] MEDS: PANTOPRAZOLE 40 MG 10ML VIAL IV SCH (03:15)
[2017-10-18] MEDS: BUDESONIDE/FORMOTEROL 160/4.5MCG INHALER INH SCH ×2 (07:00→19:53)
[2017-10-18] MEDS: IPRATROPIUM/ALBUTEROL SULFATE 4 GM INH INH SCH ×4 (07:15→19:53)
[2017-10-18 07:24] LABS: BASOPHILS % 0.3 % (0.0-1.0); EOSINOPHILS # (AUTO) 0.1 (0.0-0.4); EOSINOPHILS % 0.9 % (0.0-6.0); HEMATOCRIT 40.8 % (34.2-44.1); LYMPHOCYTES # (AUTO) 1.2 (1.0-3.2); LYMPHOCYTES % 15.1 % (18.0-39.1); MEAN CORPUSCULAR HGB CONC 31.9 g/dL (31-35); MEAN CORPUSCULAR VOLUME 84.6 fL (81-99); MONOCYTES # (AUTO) 0.9 (0.2-0.8); MONOCYTES % 10.7 % (4.4-11.3); NEUTROPHILS # (AUTO) 5.8 (2.1-6.9); NEUTROPHILS % 72.6 % (38.7-80.0); PLATELET COUNT 327 x10e3/uL (140-360); RED BLOOD COUNT 4.82 x10e6/uL (3.6-5.1); RED CELL DISTRIBUTION WIDTH 15.3 % (11.7-14.4)
[2017-10-18] MEDS: SUCRALFATE 1 GM/10 ML SUSP NG SCH ×3 (07:30→20:39)
[2017-10-18 07:48] LABS: ANION GAP 16.5 mmol/L (8-16); BLOOD UREA NITROGEN 11 mg/dL (7-26); BUN/CREATININE RATIO 13 (6-25); CALCIUM 8.9 mg/dL (8.4-10.2); CARBON DIOXIDE 30 mmol/L (22-29); CHLORIDE 94 mmol/L (98-107); CREATININE, SERUM 0.84 mg/dL (0.57-1.11); EST GLOMERULAR FILTRATION RATE > 60 ML/MIN (60-); GLUCOSE 106 mg/dL (74-118); MAGNESIUM 1.6 MG/DL (1.3-2.1); SODIUM 138 mmol/L (136-145)
[2017-10-18 07:52] LABS: POTASSIUM 2.5 mmol/L (3.5-5.1)
[2017-10-18] MEDS: CARVEDILOL 12.5 MG TAB PO SCH ×2 (08:00→17:36)
[2017-10-18] MEDS ORDERED: SODIUM CHLORIDE 0.9% 250ML 250 ML ONE ×2 (08:32→19:40)
[2017-10-18 08:54] LABS: C DIFFICILE TOXIN A&B AMP PROB NEGATIVE (NEGATIVE)
[2017-10-18] MEDS ORDERED: POTASSIUM CHLORIDE 20MEQ/100ML 200 ML IV ONE (09:00)
[2017-10-18] MEDS: DULOXETINE HCL 30 MG DELAYED RELEASE PO SCH (09:00)
[2017-10-18] MEDS: PREDNISONE 20 MG TAB PO SCH (09:00)
[2017-10-18] MEDS: LOSARTAN POTASSIUM 100 MG TAB PO SCH (09:00)
[2017-10-18] MEDS: LAMOTRIGINE 100 MG TAB PO SCH ×2 (09:00→17:36)
[2017-10-18] MEDS: TRIAMTERENE/HCTZ 37.5-25 MG TAB PO SCH (09:00)
[2017-10-18] MEDS ORDERED: POTASSIUM CHLORIDE 20MEQ/100ML 300 ML IV ONE (09:00)
[2017-10-18] MEDS: LACTOBACILLUS ACIDOPHILUS CAPSULE PO SCH ×2 (09:00→17:37)
[2017-10-18] MEDS: POTASSIUM CHLORIDE 10 MEQ TABCR PO SCH ×2 (09:00→15:46)
[2017-10-18] MEDS: LEVETIRACETAM 500 MG TAB PO SCH ×2 (09:00→17:36)
[2017-10-18] MEDS ORDERED: PREDNISONE 10 MG TAB PO SCH (11:00)
[2017-10-18] MEDS: ENOXAPARIN SOD INJ 40 MG/0.4 ML SYR SC SCH (17:37)
--- NOTE | 2017-10-18 18:25 | Diagnostic Imaging Report ---
PROCEDURE: A single AP view of the chest. COMPARISON: Patients [facility], , CHEST SINGLE (PORTABLE), 10/14/2017, 14:21. INDICATIONS: LINE PLACEMENT FINDINGS: Lines/tubes: Right upper extremity PICC with the distal tip projected on the mid SVC. Lungs: Mild bilateral perihilar, peribronchial thickening. There is no evidence of pneumonia or pulmonary edema. Pleura: There is no pleural effusion or pneumothorax. Heart and mediastinum: The cardiac silhouette is mildly enlarged. Bones: No acute bony abnormality. IMPRESSION: 1. Right upper extremity PICC with the distal tip projected on the mid SVC. Maddi Rondon M.D. Dictated by: Maddi Rondon M.D. on 10/18/2017 at 18:26 Electronically approved by: Maddi Rondon M.D. on 10/18/2017 at 18:26
[2017-10-18] MEDS: CHOLESTYRAMINE 4 GM PACKET PO SCH (22:46)
[2017-10-18] MEDS: TEMAZEPAM 15 MG CAP PO PRN (23:07)
[2017-10-19 00:12] VITALS: BP 133/72
[2017-10-19] MEDS: MEROPENEM 500 MG VIAL IV SCH ×2 (00:38→06:24)
[2017-10-19] MEDS: PANTOPRAZOLE 40 MG 10ML VIAL IV SCH (03:37)
[2017-10-19 04:58] LABS: ANION GAP 15.9 mmol/L (8-16); BLOOD UREA NITROGEN 12 mg/dL (7-26); BUN/CREATININE RATIO 15 (6-25); CALCIUM 9.2 mg/dL (8.4-10.2); CARBON DIOXIDE 28 mmol/L (22-29); CHLORIDE 98 mmol/L (98-107); EST GLOMERULAR FILTRATION RATE > 60 ML/MIN (60-); GLUCOSE 112 mg/dL (74-118); SODIUM 139 mmol/L (136-145)
[2017-10-19 05:00] VITALS: BP 146/86
[2017-10-19 05:05] LABS: POTASSIUM 2.9 mmol/L (3.5-5.1)
[2017-10-19] MEDS: CHOLESTYRAMINE 4 GM PACKET PO SCH ×2 (06:00→21:28)
[2017-10-19] MEDS: BUDESONIDE/FORMOTEROL 160/4.5MCG INHALER INH SCH ×2 (06:42→19:00)
[2017-10-19] MEDS: SUCRALFATE 1 GM/10 ML SUSP NG SCH ×3 (07:30→21:00)
[2017-10-19] MEDS: IPRATROPIUM/ALBUTEROL SULFATE 4 GM INH INH SCH ×3 (07:42→15:00)
[2017-10-19] MEDS: CARVEDILOL 12.5 MG TAB PO SCH ×2 (08:00→16:55)
[2017-10-19 08:25] VITALS: BP 159/83
--- NOTE | 2017-10-19 08:42 | Progress Note ---
DATE: October 18, 2017 PSYCHIATRIC PROGRESS NOTE The patient was evaluated and events noted. The patient is found to be lying on the bed. She is alert, awake and oriented to situation. The patient stated that she is doing better. She is less anxious and less depressed. She is not confused. She denies any depression or anxiety. She denies any hallucinations. She denies any problems with her medications. She complains of poor sleep. She denies any issues with appetite. The patient will be n.p.o. after midnight for procedure tomorrow. She is requesting for medication for sleep. ASSESSMENT: Major depressive disorder, recurrent and moderate; opiate use/abuse. PLAN: Temazepam 15 mg p.o. at bedtime p.r.n. for insomnia. Continue Lamictal. Continue Keppra as per neuro. Continue Cymbalta. Continue with Ativan, Seroquel and Haldol p.r.n. Monitor for mood. DICTATED BY KENDELL MEDRANO Job#: [id number] [place]
[2017-10-19] MEDS ORDERED: PREDNISONE 10 MG TAB PO SCH (09:00)
[2017-10-19] MEDS: FUROSEMIDE INJ 10 MG/ML 2 ML VIAL IV SCH (09:00)
[2017-10-19] MEDS: LOSARTAN POTASSIUM 100 MG TAB PO SCH (09:00)
[2017-10-19] MEDS: DULOXETINE HCL 30 MG DELAYED RELEASE PO SCH (09:00)
[2017-10-19] MEDS ORDERED: PREDNISONE 20 MG TAB PO SCH (09:00)
[2017-10-19] MEDS ORDERED: SODIUM CHLORIDE 0.9% 250ML 250 ML ONE (09:02)
[2017-10-19] MEDS: POTASSIUM CHLORIDE 20MEQ/100ML 100 ML IV SCH ×3 (09:27→18:30)
[2017-10-19 12:00] VITALS: BP 137/78
[2017-10-19] MEDS ORDERED: BENZOCAINE/TETRACAINE/BUTAMBEN AERO SPRAY 56 GM CAN ONE (14:50)
--- NOTE | 2017-10-19 15:45 | Operative Report ---
DATE OF PROCEDURE: October 19, 2017 REFERRING PHYSICIAN: Nehemias Hunt MD PROCEDURE PERFORMED: Esophagogastroduodenoscopy. INDICATIONS FOR EGD: Patient not eating. History of bad taste in mouth. MEDICATION: Patient was done under MAC. Please see anesthesiologist's note. PROCEDURE: With the patient in the left lateral decubitus position, the flexible fiberoptic Olympus gastroscope was introduced into the esophagus under direct visualization without any difficulty. The esophagus appeared to be within normal limits. The scope was then advanced with ease into the stomach, traversing a small sliding hiatal hernia. The patient appears to be status post Karthik-en-Y. Anastomosis appeared intact. The enteric loop was patent. There were no marginal ulcers. The scope was subsequently withdrawn. Patient tolerated procedure well. IMPRESSION 1. Normal esophagus. 2. Small hiatal hernia. 3. Karthik-en-Y anastomosis intact. No evidence of any marginal ulcers. PLAN: Continue current therapy. Initiate full liquid diet. Job#: [id number] cc:MICKI HUNT MD
[2017-10-19 16:29] VITALS: BP 165/76
[2017-10-19] MEDS: LAMOTRIGINE 100 MG TAB PO SCH (16:51)
[2017-10-19] MEDS: TRIAMTERENE/HCTZ 37.5-25 MG TAB PO SCH (16:51)
[2017-10-19] MEDS: LEVETIRACETAM 500 MG TAB PO SCH (16:51)
[2017-10-19] MEDS: POTASSIUM CHLORIDE 10 MEQ TABCR PO SCH (16:51)
[2017-10-19] MEDS: LACTOBACILLUS ACIDOPHILUS CAPSULE PO SCH (16:52)
[2017-10-19] MEDS: ENOXAPARIN SOD INJ 40 MG/0.4 ML SYR SC SCH (16:54)
[2017-10-19 20:00] VITALS: BP 179/72
[2017-10-19] MEDS: TEMAZEPAM 15 MG CAP PO PRN (21:27)
[2017-10-19] MEDS: TRAMADOL HCL 50 MG TAB PO PRN (21:28)
[2017-10-19] MEDS: HYDRALAZINE HCL 20 MG/ML VIAL IV PRN (22:04)
[2017-10-20] VITALS (7 sets, daily range): BP systolic 109–178; BP diastolic 49–79
[2017-10-20] MEDS: PANTOPRAZOLE 40 MG 10ML VIAL IV SCH (03:25)
[2017-10-20] MEDS: CHOLESTYRAMINE 4 GM PACKET PO SCH ×2 (05:54→11:44)
[2017-10-20] MEDS: HYDRALAZINE HCL 20 MG/ML VIAL IV PRN (05:55)
[2017-10-20] MEDS: IPRATROPIUM/ALBUTEROL SULFATE 4 GM INH INH SCH ×3 (07:00→15:00)
[2017-10-20] MEDS: BUDESONIDE/FORMOTEROL 160/4.5MCG INHALER INH SCH (07:00)
[2017-10-20 07:08] LABS: BASOPHILS # (AUTO) 0.1 (0.0-0.1); BASOPHILS % 0.6 % (0.0-1.0); EOSINOPHILS # (AUTO) 0.2 (0.0-0.4); EOSINOPHILS % 2.4 % (0.0-6.0); HEMATOCRIT 41.4 % (34.2-44.1); HEMOGLOBIN 12.9 g/dL (12.0-16.0); LYMPHOCYTES # (AUTO) 1.6 (1.0-3.2); LYMPHOCYTES % 18.8 % (18.0-39.1); MEAN CORPUSCULAR HEMOGLOBIN 26.9 pg (28-32); MEAN CORPUSCULAR HGB CONC 31.2 g/dL (31-35); MEAN CORPUSCULAR VOLUME 86.4 fL (81-99); MONOCYTES # (AUTO) 0.8 (0.2-0.8); NEUTROPHILS # (AUTO) 5.6 (2.1-6.9); NEUTROPHILS % 67.8 % (38.7-80.0); PLATELET COUNT 310 x10e3/uL (140-360); RED BLOOD COUNT 4.79 x10e6/uL (3.6-5.1); RED CELL DISTRIBUTION WIDTH 15.6 % (11.7-14.4)
[2017-10-20 07:38] LABS: ALANINE AMINOTRANSFERASE 38 IU/L (0-55); ALBUMIN 3.2 g/dL (3.5-5.0); ALBUMIN/GLOBULIN RATIO 0.9 (0.8-2.0); ALKALINE PHOSPHATASE 122 IU/L (40-150); ANION GAP 14.2 mmol/L (8-16); BLOOD UREA NITROGEN 11 mg/dL (7-26); BUN/CREATININE RATIO 14 (6-25); CALCIUM 9.2 mg/dL (8.4-10.2); CARBON DIOXIDE 25 mmol/L (22-29); CHLORIDE 104 mmol/L (98-107); CREATININE, SERUM 0.81 mg/dL (0.57-1.11); EST GLOMERULAR FILTRATION RATE > 60 ML/MIN (60-); GLUCOSE 127 mg/dL (74-118); POTASSIUM 3.2 mmol/L (3.5-5.1); SODIUM 140 mmol/L (136-145)
[2017-10-20] MEDS: POTASSIUM CHLORIDE 10 MEQ TABCR PO SCH (08:51)
[2017-10-20] MEDS: SUCRALFATE 1 GM/10 ML SUSP NG SCH ×2 (08:51→11:44)
[2017-10-20] MEDS: CARVEDILOL 12.5 MG TAB PO SCH (08:51)
[2017-10-20] MEDS: TRIAMTERENE/HCTZ 37.5-25 MG TAB PO SCH (08:51)
[2017-10-20] MEDS: FUROSEMIDE INJ 10 MG/ML 2 ML VIAL IV SCH (08:51)
[2017-10-20] MEDS: LEVETIRACETAM 500 MG TAB PO SCH (08:51)
[2017-10-20] MEDS: LACTOBACILLUS ACIDOPHILUS CAPSULE PO SCH (08:51)
[2017-10-20] MEDS: LAMOTRIGINE 100 MG TAB PO SCH (08:51)
[2017-10-20] MEDS: DULOXETINE HCL 30 MG DELAYED RELEASE PO SCH (08:51)
[2017-10-20] MEDS: LOSARTAN POTASSIUM 100 MG TAB PO SCH (08:51)
[2017-10-20] MEDS ORDERED: POTASSIUM CHLORIDE 10 MEQ TABCR PO STA (13:18)
--- NOTE | 2017-10-20 16:06 | Progress Note ---
DATE: October 20, 2017 PSYCHIATRIC PROGRESS NOTE Patient evaluated and events noted. Patient is found to be lying on her bed. She is alert, awake, and oriented to situation. She stated that she is doing well. She denies any depression, anxiety. She denies any hallucinations. She denies any suicidal ideation. She denies any problems with her medications. ASSESSMENT: Major depressive disorder, recurrent; opiate use and abuse. PLAN 1. Continue temazepam 15 mg p.o. nightly p.r.n. 2. Continue Lamictal and Keppra as per medical and neuro. 3. Continue Cymbalta. 4. Continue Ativan, Seroquel and Haldol p.r.n. 5. Monitor for mood. 6. Supportive therapy. Discussed with the nursing staff and patient is cleared from psychiatry standpoint. DICTATED BY KENDELL MEDRANO Job#: [id number] DG
[2017-10-20] MEDS ORDERED: LASIX20 MG PO (16:43)
[2017-10-20] MEDS ORDERED: K DUR10 MEQ PO (16:44)
[2017-10-20] MEDS ORDERED: PROPOFOL IV EMULSION 10 MG/ML 50 ML VIAL IV ONE (17:20)
[2017-10-20] MEDS ORDERED: LIDOCAINE HCL 2% LOCAL INJ 5 ML SDV VIAL INJ ONE (17:20)
--- NOTE | 2017-10-21 16:29 | Pulmonary Function Test ---
DATE OF STUDY: October 18, 2017 Restrictive spirometry: Forced vital capacity 1.29 liters, 40% of predicted. FEV1 1.14 liters 45%. FEV-1 FVC ratio 88%. [id number], 57%. Restrictive pattern. However, there is significant improvement following inhalation of bronchodilators suggesting a concomitant obstructive process. Significant reversibility. The forced vital capacity juana to 1.64 liters 50% of predicted with 27% of improvement. The FEV1 juana to 1.28 liters, 12% in improvement, 50% of predicted. Job#: [id number]
== END 2017-10-20 17:21 | disposition home or self-care (01) | DRG 689 ==
LOC: ER 13:08 → ERHOLD 16:14 → IMCU 17:19 → OBSVTOIN 10-17 16:00 → MED/SURG3 10-19 15:38
PROVIDERS: ADMIT Internal Medicine; ATTEND Internal Medicine
PROC: 02HV33Z Insertion of Infusion Device into Superior Vena Cava, Percutaneous Approach (ICD-10-PCS; 2017-10-18)
PROC: B5181ZA Fluoroscopy of Superior Vena Cava using Low Osmolar Contrast, Guidance (ICD-10-PCS; 2017-10-18)
PROC: 0DJ08ZZ Inspection of Upper Intestinal Tract, Via Natural or Artificial Opening Endoscopic (ICD-10-PCS; principal; 2017-10-19 14:45)
DX: N30.90 Cystitis, unspecified without hematuria (principal); G93.41 Metabolic encephalopathy; Z68.43 Body mass index [BMI] 50.0-59.9, adult; I50.30 Unspecified diastolic (congestive) heart failure; M00.9 Pyogenic arthritis, unspecified; F33.1 Major depressive disorder, recurrent, moderate; J44.1 Chronic obstructive pulmonary disease with (acute) exacerbation; E66.01 Morbid (severe) obesity due to excess calories; G89.4 Chronic pain syndrome; E78.5 Hyperlipidemia, unspecified; F17.210 Nicotine dependence, cigarettes, uncomplicated; Z98.84 Bariatric surgery status; F41.9 Anxiety disorder, unspecified; I27.20 Pulmonary hypertension, unspecified; Z91.81 History of falling; Z96.651 Presence of right artificial knee joint; G47.33 Obstructive sleep apnea (adult) (pediatric); K44.9 Diaphragmatic hernia without obstruction or gangrene; E87.6 Hypokalemia; Z16.12 Extended spectrum beta lactamase (ESBL) resistance; I11.0 Hypertensive heart disease with heart failure; R19.7 Diarrhea, unspecified; R56.9 Unspecified convulsions; Z91.14 Patient's other noncompliance with medication regimen; Z79.891 Long term (current) use of opiate analgesic; G51.0 Bell's palsy; R09.02 Hypoxemia
CPT/HCPCS: 36415; 36569; 36600; 43235; 71045; 74018; 80048; 80053; 80307; 81001; 82140; 82270; 82542; 82550; 82553; 82607; 82805; 83540; 83630; 83735; 83880; 84439; 84443; 84466; 84484; 85025; 85610; 85651; 85730; 86140; 86256; 86592; 86671; 87045; 87086; 87177; 87186; 87493; 93005; 93306; 93971; 94060; 94640; 96360; 97139; 99284; G0378; J0360; J0696; J1650; J1940; J2001; J2185; J2405; J3480; J7030; J7050

== ENCOUNTER 2018-12-22 15:54 | Emergency (ER) | payer MEDICARE ==
[~2018-12-22] VITALS: Ht 160 cm; Wt 147.0 kg
[~2018-12-22 15:54] MED LIST changes: +COMBIVENT RESPIM4 GM IH; +K DUR10 MEQ PO; +LASIX20 MG PO; +LOSARTAN POTAS100 MG PO; +MECLIZINE HCL12.5 MG PO; +NAPROXEN250 MG PO; +NEXIUM40 MG PEG
--- OUTSIDE RECORDS SUMMARY | 2018-12-22 15:58 | XMS REPORT | Summary of Care ---
Author Author [facility] [place] Organization [facility] [place] Address Unknown Phone Unavailable Encounter [facility] [place]) [id number] Date(s): 03/05/17 - 03/05/17 [facility] [place] [address] [place] [phone] Discharge Disposition: Home or Self Care Attending Physician: Franco Abrams MD Vital Signs No data available for this section Problem List Condition Effective Dates Status Health Status Informant Apnea(Confirmed) Resolved Arthritis(Confirmed) Active Carpal 2011 Active tunnel(Confirmed) Diarrhea(Confirmed) Active Herniation of Resolved fascia(Confirmed)1 Gastric bypass Active operation(Confirmed) GERD - Active Gastro-esophageal reflux disease(Confirmed) Hypertension(Confirm Active ed) Morbid Active obesity(Confirmed) Meningioma(Confirmed Active ) PE - Pulmonary Active embolism(Confirmed) Bypass graft Resolved stenosis(Confirmed)2 1repair 2gastro Allergies, Adverse Reactions, Alerts Substance Reaction Severity Status aspirin Rash Active Medications No data available for this section Results No data available for this section Immunizations No data available for this section Procedures Procedure Date Related Diagnosis Body Site Knee replacement Social History Social History Type Response Smoking Status Current every day smoker; Type: Cigarettes; Previous treatment: None; Ready to change: No; Concerns about tobacco use in household: No; Lives with someone who smokes; Cigarette Smoking Last 365 Days Yes; Reg Smoking Cessation Counseling No Assessment and Plan No data available for this section
--- OUTSIDE RECORDS SUMMARY | 2018-12-22 15:58 | XMS REPORT | Summary of Care ---
Author Author [facility] [place] Organization [facility] [place] Address Unknown Phone Unavailable Encounter HQ [facility](FIN) [id number] Date(s): 03/05/17 - 03/05/17 [facility] [place] [address] [place] [phone] Discharge Disposition: Home or Self Care Attending Physician: Silvano Gregorio MD Vital Signs No data available for [...]
--- OUTSIDE RECORDS SUMMARY | 2018-12-22 15:58 | XMS REPORT | Continuity of Care Document ---
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 Name Role Phone [employer] Unavailable Unavailable Problems Problem Status Onset Date Classification Date Reported Comments Source Benign neoplasm of meninges, unspecified 09/29/2017 12/29/2017 [place] MENINGIOMA D33.0 Active 07/24/2016 [facility] D32.0 - BENIGN NEOPLASM OF CEREBRAL ME Active 07/06/2016 [place] Carpal tunnel Active 06/21/2010 Problem 12/31/2017 [facility], [place], [place] Apnea Resolved Problem 12/31/2017 [facility], [place], OPIAnn [place] Arthritis Active Problem 12/31/2017 [facility], [place], [facility]ID [place] Diarrhea Active Problem 12/31/2017 [facility], [place], OPIAnn [place] Herniation of fascia1 Resolved Problem 12/31/2017 repair [facility], [place], [place] Cam[place] Gastric bypass operation Active Problem 12/31/2017 [facility], [place], [facility] [place] GERD - Gastro-esophageal reflux disease Active Problem 12/31/2017 [facility], [place], [facility] [place] Hypertension Active Problem 12/31/2017 [facility], [place], O[place]Ann [place] Morbid obesity Active Problem 12/31/2017 [facility], [place], [facility] [place] Meningioma Active Problem 12/31/2017 [facility], [place], [facility] [place] PE - Pulmonary embolism Active Problem 12/31/2017 [facility], [place], [place] R[place] Bypass graft stenosis2 Resolved Problem 12/31/2017 gastro [facility], [place], [place] Medications Medication Details Route Status Patient Instructions Ordering Provider Order Date Source Acetaminophen 325 MG / Hydrocodone Bitartrate 5 MG Oral Tablet 2 tab, Route: PO, Drug Form: TAB, Dosing Weight 160, kg, Q4H, PRN Pain Score 7-10, Start date: 08/04/16 8:16:00 [employer]ER [employer] RU[employer]ER, Duration: 30 day, Stop date: 09/03/16 8:15:00 CDTNotes: (Same as: [place] 325/5) Do not exceed 4gm/day of acetaminophen. Inactive 08/04/2016 [facility] Acetaminophen 325 mg, 1 tab, Route: PO, Drug form: TAB, Q4H, Dosing Weight 160, kg, PRN Pain Score 1-3, Start date: 08/04/16 8:16:00 [employer]ER [employer] RU[employer]ER, Duration: 30 day, Stop date: 09/03/16 8:15:00 CDTNotes: Do not exceed 4 gm/ day. (Same as: Tylenol) Inactive 08/04/2016 [facility] Sodium Chloride 0.154 MEQ/ML Injectable Solution 1,000 mL, Rate: 50 ml/hr, Infuse over: 20 hr, Route: IV, Dosing Weight 160 kg, Total Volume: 1,000, Priority: Routine, Start date: 08/04/16 8:16:00 [employer]ER, Duration: 30 day, Stop date: 09/03/16 8:15:00 CDT Inactive 08/04/2016 [facility] Fentanyl 50 microgram, 1 mL, Route: IV, Drug form: INJ, ONCE, Dosing Weight 160, kg, PRN Pain Score 7-10, Start date: 08/04/16 6:14:00 [employer]ER [employer]ER, Pediatric Dosing; For procedure; > 50 kgNotes: (Same as: Sublimaze) Preservative free. Inactive 08/04/2016 [facility] Fentanyl 50 microgram, 1 mL, Route: IVP, Drug form: INJ, ONCALL, Dosing Weight 160, kg, Priority: Routine, Start date: 08/04/16 6:00:00 [employer]ER [employer]ER, Duration: 1 doses or times, Stop date: 08/05/16 0:00:00 CSTNotes: (Same as: Sublimaze) Preservative free. Inactive 08/04/2016 [facility] Bupivacaine Hydrochloride 2.5 MG/ML / Epinephrine 0.005 MG/ML Injectable Solution 30 mL, Route: MISC, Drug Form: INJ, Dosing Weight 160, kg, ONCALL, Start date: 08/04/16 6:00:00 [employer]ER [employer] RU[employer]ER, Duration: 1 doses or times, Stop date: 08/05/16 0:00:00 CSTNotes: (bupivacaine-epi 0.25%-1:200,000 30 ml VL) Not for use in continuous infusion. (Same As: Marcaine w/Epi) Inactive 08/04/2016 [facility] Bacitracin 0.5 UNT/MG / Polymyxin B 10 UNT/MG Topical Ointment [Polysporin] 1 appl, Route: TOP, ONCALL, Drug form: OINT, Priority: Routine, Start date: 08/04/16 6:00:00 CURER [employer] RUBBER, Duration: 1 doses or times, Stop date: 08/05/16 0:00:00 CSTNotes: (Same As: Polysporin) Inactive 08/04/2016 [facility] Fentanyl 25 microgram, 0.5 mL, Route: IVP, Drug form: INJ, Q1H, Dosing Weight 160, kg, PRN Pain Score 6-10, Priority: Routine, Start date: 08/04/16 5:10:00 [employer]ER [employer]ER, Duration: 1 doses or times, Stop date: Limited # of timesNotes: (Same as: Sublimaze) Preservative free. Inactive 08/04/2016 [facility] Famotidine 20 mg, 2 mL, Route: IVP, Drug form: INJ, ONCE, Dosing Weight 160, kg, Start date: 08/04/16 5:10:00 [employer]ER [employer]ER, Stop date: 08/04/16 5:10:00 CSTNotes: (Same as: Pepcid) Can be dilute in 5-10cc NS IVP: Slow IV push over at least 2 minutes. Inactive 08/04/2016 [facility] Ondansetron 4 mg, 2 mL, Route: IVP, Drug form: INJ, Q6H, Dosing Weight 160, kg, PRN Nausea & Vomiting, Start date: 08/04/16 5:10:00 [employer]ER, Duration: 30 day, Stop date: 09/03/16 5:09:00 CDTNotes: (Same as: Zofran) MEDICATION WASTE Product Size: 4 mg Product Wasted: _0__ mg Inactive 08/04/2016 [facility] Promethazine 25 mg, 1 mL, Route: IVPB, Drug form: INJ, Q6H, Dosing Weight 160, kg, PRN Nausea & Vomiting, Start date: 08/04/16 5:10:00 [employer]ER [employer]ER, Duration: 30 day, Stop date: 09/03/16 5:09:00 CDTNotes: Do not give IV p ush. (Same as: Phenergan) Inactive 08/04/2016 [facility] Dexamethasone 6 mg, 0.6 mL, Route: IVP, Drug form: INJ, ONCE, Dosing Weight 160, kg, Start date: 08/04/16 5:10:00 [employer]ER [employer] RU[employer]ER, Stop date: 08/04/16 5:10:00 CSTNotes: MEDICATION WASTE Product Size: 10 mg Product Wasted: _4__ mg Inactive 08/04/2016 [facility] Sodium Chloride 0.154 MEQ/ML Injectable Solution 1,000 mL, Rate: 50 ml/hr, Infuse over: 20 hr, Route: IV, Dosing Weight 160 kg, Total Volume: 1,000, Priority: Routine, Start date: 08/04/16 5:10:00 CURER [employer] RU[employer]ER, Duration: 30 day, Stop date: 09/03/16 5:09:00 CDT Inactive 08/04/2016 [facility] Allergies, Adverse Reactions, Alerts Substance Category Reaction Severity Reaction type Status Date Reported Comments Source aspirin Assertion Rash Drug allergy Active [facility] Immunizations No Data Provided for This Section Results Order Name Results Value Reference Range Date Interpretation Comments Source CHEM PANEL eGFR 71 08/04/2016 Result Comment: The eGFR is calculated using the CKD-EPI formula. In most young, healthy individuals the eGFR will be >90 mL/min/1.73m2. The eGFR declines with age. An eGFR of 60-89 may be normal in some populations, particularly the elderly, for whom the CKD-EPI formula has not been extensively validated. Use of the eGFR is not recommended in the following populations:

Individuals with unstable creatinine concentrations, including patients and those with serious co-morbid conditions.

Patients with extremes in muscle mass or diet.

The data above are obtained from the National Kidney Disease Education Program (NKDEP) which additionally recommends that when the eGFR is used in patients with extremes of body mass index for purposes of drug dosing, the eGFR should be multiplied by the estimated BMI. [facility] CHEM PANEL BUN 14 7 - 22 08/04/2016 [facility] CHEM PANEL Creatinine Lvl 0.91 0.50 - 1.40 08/04/2016 [facility] ENDOCRINOLOGY S Preg Negative *NA* (08/04/16 5:39 AM) Negative 08/04/2016 [facility] Pathology Reports No Data Provided for This Section Diagnostic Reports Report Value Date Source Brain w/wo contrast MRI EXAM: MRI BRAIN WITH AND WITHOUT CONTRAST DATE: 09/22/2017 12:54 PM CDT INDICATION: Meningioma, gamma knife COMPARISON: CT of the head from August 18, 2011, MRI of the brain from July 17, 2016, August 04, 2016 and March 05, 2017 TECHNIQUE: Multiplanar, mutisequence MRI of the brain with and without contrast. IV contrast: 20 cc of dotarem FINDINGS: Again identified, there is a right parafalcine meningioma located in the right frontal convexity which measures 14 x 14 x 16 mm (CC x T x AP) in the previous examination the lesion measured 17 x 17 x 16 mm and in the baseline examination from June 2016 it measured 15 x 16 x 16 mm. The meningioma extends into the inner table of the calvarium and involves the superior sagittal sinus. A partially empty sella configuration is identified. A minimal amount of chiasmatic herniation into the empty sella is seen. The sulci and the ventricles are normal for the patient's age. No restricted diffusion is present. No intracranial hemorrhage is identified. No parenchymal abnormalities are seen. The midline is not deviated. No evidence of herniations. The intracranial arterial and venous structures demonstrate normal flow voids. The visible paranasal sinuses and skull base are unremarkable. IMPRESSION: 1. In the interval, there has been slight decrease in the size of the right parafalcine meningioma noted in the right frontal convexity if compared to the previous studies. 2. The meningioma extends into the inner table of the calvarium and involves the superior sagittal sinus 09/22/2017 [place] Shoulder wo contrast MRI EXAMINATION: MR right shoulder without contrast HISTORY: Right shoulder pain; right rotator cuff tear; right glenohumeral chondrosis/osteoarthrosis COMPARISON: There are no radiographs available for review. TECHNIQUE: Multiplanar, multisequence magnetic resonance imaging of the right shoulder is performed with a local coil. Transverse, oblique coronal, and oblique sagittal images are obtained. FINDINGS: Biceps: There is medial subluxation of the long head of the biceps tendon from the bicipital groove at the level of the lesser tuberosity secondary to a partial-thickness tear of the distal subscapularis tendon. The long head of the biceps tendon remains attached at the superior bicipital labral complex. Labrum: There is degenerative tearing of the anteroinferior and inferior glenoid labrum. Rotator cuff tendons: There is high-grade, near full-thickness, bursal sided tearing involving the footprints of the supraspinatus and infraspinatus tendons measuring 3 cm in anteroposterior dimension and involving up to 90% of the tendon thickness anteriorly, but there is no definite discrete full-thickness tear and there is no tendinous retraction. There is underlying severe supraspinatus and infraspinatus tendinosis. The teres minor tendon is intact. There is a moderate grade, partial-thickness, articular sided tear involving the distal cranial fibers of the subscapularis tendon with underlying moderate to severe subscapularis tendinosis. Muscles: There is mild fatty infiltration of the superior fibers of the subscapularis muscle. Otherwise, there is normal signal intensity and muscle bulk of the rotator cuff musculature. Acromio-osseous outlet: There is a type II acromion with mild subacromial spurring. There is no os acromiale. The coracoacromial and coracoclavicular ligaments are intact. There is widening of the acromioclavicular joint with underlying osseous degenerative changes of the distal clavicle. Bone: Again, there are osseous degenerative changes of the distal clavicle, but underlying widening of the acromioclavicular jThe inferior glenohumeral capsular ligaments are intact.oint space. Foci of subchondral edema are also noted at the glenohumeral joint. There are no acute fractures. There are no suspicious bone marrow replacing lesions. Cartilage: There is moderate to severe glenohumeral osteoarthrosis with associated high-grade chondrosis involving the superior and superomedial humeral head and superior and posterior aspect of the glenoid. Soft tissue: There is moderate amount of fluid in the subacromial-subdeltoid bursa. There is a small to moderate-sized glenohumeral joint effusion. IMPRESSION: 1. High-grade, near full-thickness, bursal sided tearing involving the footprints of the right supraspinatous and infraspinatus tendons with measurements as above. There is underlying severe right supraspinatus and right infraspinatus tendinosis, but no supraspinatus or infraspinatus muscle atrophy. 2. Moderate grade, partial-thickness, articular sided tear involving the distal cranial fibers of the right subscapularis tendon with underlying moderate to severe right subscapularis tendinosis and mild fatty infiltration of the superior fibers of the right subscapularis muscle. 3. Medial subluxation of the long head of the biceps tendon from the bicipital groove at the level of the lesser tuberosity secondary to a partial-thickness tear of the distal right subscapularis tendon. 4. Moderate to severe right glenohumeral osteoarthrosis with associated high-grade chondrosis involving the superior and superomedial humeral head and superior and posterior aspect of the glenoid, as well as, foci of subchondral edema at the glenohumeral joint. 5. Degenerative tearing of the anteroinferior and inferior right glenoid labrum. 6. Widening of the right acromioclavicular joint with underlying osseous degenerative changes of the distal right clavicle. 7. Moderate right subacromial subdeltoid bursitis. 8. Small to moderate-sized right glenohumeral joint effusion. 03/05/2017 [place] Brain w/wo contrast MRI EXAM: MRI BRAIN WITH AND WITHOUT CONTRAST DATE: 03/05/2017 10:42 AM CDT INDICATION: - meninngioma , Knife was performed on 2016 COMPARISON: MRI of the brain from July 17, 2016July TECHNIQUE: Multiplanar, mutisequence MRI of the brain with and without contrast. IV contrast: 20 mL of dotarem FINDINGS: Again identified, a well-defined mass that shows homogeneous enhancement is present in the extra-axial space in the parafalcine region on the right frontal lobe. The mass abuts the sagittal sinus without disrupting it and extends slightly into the bone marrow. The size of the mass has not changed since the previous examination. The sulci and the ventricles are normal for the patient's age. No restricted diffusion is present. No intracranial hemorrhage is identified. No brain parenchymal lesions are seen. The midline is not deviated. No evidence of herniations. The intracranial arterial and venous structures demonstrate normal flow voids. The visible paranasal sinuses and skull base are unremarkable. IMPRESSION: Stable right parafalcine frontal meningioma. 03/05/2017 [place] Brain w contrast MRI EXAM: MRI BRAIN WITH CONTRAST DATE: 08/04/2016 8:00 AM [employer]ER INDICATION: Mass/Tumor COMPARISON: MRI brain 07/17/2016 TECHNIQUE: Axial postcontrast 3-D T1 weighted imaging was acquired through the brain. IV contrast: 20 mL MultiHance FINDINGS: Limited sequence was acquired for treatment planning. Again demonstrated is the enhancing right parafalcine mass which measures 16 mm AP x10.5 mm transverse. No additional enhancing lesions. No hydrocephalus or herniation. IMPRESSION: Stealth protocol for treatment planning. Right parafalcine extra-axial mass, most likely a meningioma. 08/04/2016 [facility] Brain w/wo contrast MRI MRI of the brain with and without contrast Clinical indication: D32.0 Benign neoplasm of cerebral meninges Comparison: Head CT 06/17/2012 Technique: Multiplanar, multisequence pre- and postcontrast images of the brain were obtained. 20 mL Omniscan was administered. Findings: There is mild diffuse cerebral atrophy. At the junction of the right frontal bone convexity and the anterior falx there is a area of enhancing dural thickening likely due to meningioma measuring 1.6 x 1.6 x 1.2 cm in sagittal, anterior posterior, transverse dimensions, respectively. There is minimal crossing of midline by approximately 3 mm with mass effect on the anterior most portion of the superior sagittal sinus causing narrowing, though there is apparent collateralization (series 3, image 31). This is probably increased in size compared to prior exam where it measured approximately 1.1 cm. There are mild punctate T2 hyperintensities involving the cerebral white matter without enhancement nor diffusion restriction. These are nonspecific but likely represent small vessel ischemic change. There is no evidence of acute infarct, intracranial hemorrhage, midline shift, hydrocephalus or extra-axial collection. There is no diffusion restriction. There is no abnormal parenchymal enhancement. The orbits are normal. The paranasal sinuses and mastoid air cells are well-aerated. Impression: 1. Right anterior falx, probable meningioma with likely focal mass effect on the anterior portion of the superior sagittal sinus. 2. Mild probable small vessel ischemic change. Otherwise, no evidence of acute intracranial abnormality. 07/17/2016 [place] Consultation Notes No Data Provided for This Section Discharge Summaries No Data Provided for This Section History and Physicals No Data Provided for This Section Vital Signs Vital Sign Value Date Comments Source BMI Calculated 62.13 09/24/2017 [facility] Weight 159.091 09/24/2017 [facility] Height 160.02 cm 09/24/2017 [facility] Systolic (mm Hg) 152 09/24/2017 [facility] Heart Rate 94 09/24/2017 [facility] Temperature Oral (F) 98.4 F 09/24/2017 [facility] Systolic (mm Hg) 174 08/04/2016 [facility] Diastolic (mm Hg) 71 08/04/2016 [facility] Respitory Rate 18 08/04/2016 [facility] Systolic (mm Hg) 178 08/04/2016 [facility] Diastolic (mm Hg) 76 08/04/2016 [facility] Respitory Rate 18 08/04/2016 [facility] Systolic (mm Hg) 182 08/04/2016 [facility] Diastolic (mm Hg) 79 08/04/2016 [facility] Respitory Rate 21 08/04/2016 [facility] Heart Rate 68 08/04/2016 [facility] Weight 160 07/29/2016 [facility] Height 160.02 cm 07/29/2016 [facility] BMI Calculated 62.48 07/29/2016 [facility] Encounters Location Location Details Encounter Type Encounter Number Reason For Visit Attending Provider ADM Date DC Date Status Source [facility] [place] [facility] [id number] Wednesday07/17/2016 07/18/2016 [facility] [place] Outpatient [id number] MICHAEL DOVE 07/24/2016 Active [facility] Bed[facility] Outpatient [id number] Michael Dove 08/04/2016 08/04/2016 [facility] Outpatient [id number] MICHAEL DOVE 09/18/2016 Active [facility] Outpatient [id number] MICHAEL DOVE 03/05/2017 Active [facility] [id number] Michael Dove 03/05[facility]2017 [facility] [place] [facility] [id number] Franco Abrams 03/05/2017 03/06/2017 [facility] [place] [facility] Phone Message [id number] 08/27/2017 [facility] Phone Message [id number] 08/30/2017 09/01/2017 [facility] Phone Message [id number] 08/31/2017 09/02/2017 [facility] [place] Out[facility] Diag Services [id number] Michael Dove 09/22/2017 09/23/2017 [facility] Outpatient [id number] MICHAEL DOVE 09/24/2017 [facility] Outpatient [id number] Dilipkumar Abrams 09/24/2017 09/25/2017 [facility] Procedures Procedure Code Date Perfomer Comments Source Knee replacement [id number] [facility] Knee replacement [id number] [facility] Knee replacement [id number] [facility] [place] Knee replacement [id number] [facility] Assessment and Plan No Data Provided for This Section Plan of Care No Data Provided for This Section Social History Social History Date Source Social History TypeResponse Smoking Status Current every day smoker; Type: Cigarettes; Previous treatment: None; Ready to change: No; Concerns about tobacco use in household: No; Lives with someone who smokes; Cigarette Smoking Last 365 Days Yes; Reg Smoking Cessation Counseling No entered on: 09/24/17 [facility]24[facility] [place] Social History TypeResponse Smoking Status Current every day smoker; Type: Cigarettes; Previous treatment: None; Ready to change: No; Concerns about tobacco use in household: No; Lives with someone who smokes; Cigarette Smoking Last 365 Days Yes; Reg Smoking Cessation Counseling No entered on: 09/24/17 09/24/2017 [facility] Social History TypeResponse Smoking Status Current every day smoker; Type: Cigarettes; Previous treatment: None; Ready to change: No; Concerns about tobacco use in household: No; Lives with someone who smokes; Cigarette Smoking Last 365 Days Yes; Reg Smoking Cessation Counseling No 03/05/2017 [place] Social History TypeResponse Smoking Status Current every day smoker; Type: Cigarettes; Previous treatment: None; Ready to change: No; Concerns about tobacco use in household: No; Lives with someone who smokes; Cigarette Smoking Last 365 Days Yes; Reg Smoking Cessation Counseling No 08/04/2016 [facility] Family History No Data Provided for This Section Advance Directives No Data Provided for This Section Functional Status No Data Provided for This Section
--- OUTSIDE RECORDS SUMMARY | 2018-12-22 15:58 | XMS REPORT | Summary of Care ---
Author Author MEHelen Neurosurgery [facility] Organization [facility] Neurosurgery [facility] Address Unknown Phone Unavailable Encounter HARJEET Melgar(FIN) [id number] Date(s): 09/24/17 - 09/24/17 [facility] Neurosurgery [facility] [address] [facility], [address] [place], [place] [address] [place], [place] [address] [phone] Discharge Disposition: Home or Self Care Attending Physician: Silvano Gregorio MD Referring Physician: Franco Abrams MD Vital Signs Most recent to 1 oldest [Reference Range]: Height 160.02 cm (09/24/17 5:03 PM) Temperature Oral 98.4 DegF [96.4-99.1 DegF] (09/24/17 5:03 PM) Systolic Blood 152 mmHg Pressure [90-140 *HI* mmHg] (09/24/17 5:03 PM) Peripheral Pulse 94 bpm Rate [60-100 bpm] (09/24/17 5:03 PM) Weight 159.091 kg (09/24/17 5:03 PM) Body Mass Index 62.13 m2 (09/24/17 5:03 PM) Problem List Condition Effective Dates Status Health [...] Severity Status aspirin Rash Active Medications No Known Medications Results No data available for this section Immunizations No data available for this section Procedures Procedure Date Related Diagnosis Body Site Status Knee replacement Completed Social History Social History Type Response Smoking Status Current every day smoker; Type: Cigarettes; Previous treatment: None; Ready to change: No; Concerns about tobacco use in household: No; Lives with someone who smokes; Cigarette Smoking Last 365 Days Yes; Reg Smoking Cessation Counseling No entered on: 09/24/17 Assessment and Plan No data available for this section
--- OUTSIDE RECORDS SUMMARY | 2018-12-22 15:59 | XMS REPORT | Summary of Care ---
Author Author [facility] Outpatient Imaging [facility] [place] Address Unknown Phone Unavailable Encounter HQ Encntr_alias(FIN) [id number] Date(s): 09/22/17 - 09/22/17 [facility] [address] [place] [phone] Encounter Diagnosis Benign neoplasm of meninges, unspecified (Final) - 09/28/17 Discharge Disposition: Home or Self Care Attending [...]
--- OUTSIDE RECORDS SUMMARY | 2018-12-22 15:59 | XMS REPORT | Summary of Care ---
Author Author CTHelen Neurosurgery [facility] Organization [facility] Neurosurgery [facility] Address Unknown Phone Unavailable Encounter HQ Bing_roberta(FIN) [id number] Date(s): 08/27/17 - 08/28/17 [facility] Neurosurgery [facility] [address] [facility], [address] [place], [place] [address] [phone] Vital Signs No data available for this [...]
--- OUTSIDE RECORDS SUMMARY | 2018-12-22 15:59 | XMS REPORT | Summary of Care ---
Author Author JOHNATHON [facility]surgery [facility] Organization [facility] Neurosurgery [facility] Address Unknown Phone Unavailable Encounter HQ Bing_roberta(FIN) [id number] Date(s): 08/31/17 - 09/01/17 [facility] [address] [facility], [address] [place], [place] [address] [phone] Vital Signs No [...]
--- OUTSIDE RECORDS SUMMARY | 2018-12-22 15:59 | XMS REPORT | Summary of Care ---
Author Author [place]en [facility]surgery [facility] Organization [facility] Neurosurgery [facility] Address Unknown Phone Unavailable Encounter HARJEET Melgar(FIN) [id number] Date(s): 09/24/17 - 09/24/17 [facility] Neurosurgery [facility] [address] [facility], [address] [place], [place] [address] [place], [place] [address] [phone] Discharge Disposition: Home or Self Care Attending [...]
--- OUTSIDE RECORDS SUMMARY | 2018-12-22 15:59 | XMS REPORT | Summary of Care ---
Author Author [facility] Outpatient Imaging [facility] Outpatient Imaging [place] Address Unknown Phone Unavailable Encounter HQ Felyntr_roberta(FIN) [id number] Date(s): 09/22/17 - 09/22/17 [facility] Outpatient Imaging [facility] [address] [place] [phone] Encounter Diagnosis Benign neoplasm of meninges, unspecified (Final) - Discharge Disposition: Home or Self Care Attending [...]
--- OUTSIDE RECORDS SUMMARY | 2018-12-22 15:59 | XMS REPORT ---
Author Author Admin, [place] Organization [facility] Dental Address [address] [address] Phone Allergies, Adverse Reactions, Alerts Allergy Name [...] Mendez OD Presbyopia EXAMINATION, DENTAL V72.2 Active iKt Landaverde DDS Special investigations and examinations - [...] Patient Instruction AMBIEN TABS ZOLPIDEM TARTRATE TABS 31480452502 Active El Alvarenga MD Active BACTRIM TABS SULFAMETHOXAZOLE-TRIMETHOPRIM TABS 02443221809 Active El Alvarenga MD Active BENTYL TABS DICYCLOMINE HCL TABS 74237389500 Active El Alvarenga MD Active CEPHALEXIN TABS CEPHALEXIN TABS 34269389353 Active El Alvarenga MD Active CLONAZEPAM TABS CLONAZEPAM TABS 72557413272 Active El Alvarenga MD Active FENTANYL CITRATE POWD FENTANYL CITRATE 89778584262 Active El Alvarenga MD Active GABAPENTIN TABS GABAPENTIN TABS 25184825186 Active El Alvarenga MD Active KEPPRA TABS LEVETIRACETAM TABS 63700181924 Active El Alvarenga MD Active ONDANSETRON TBDP ONDANSETRON TBDP 51006914318 Active El Alvarenga MD Active PROTONIX PACK PANTOPRAZOLE SODIUM PACK 41971495918 Active lE Alvarenga MD Active RIFAMPIN CAPS RIFAMPIN CAPS 96127494790 Active El Alvarenga MD Active HYDROCODONE-ACETAMINOPHEN TABS HYDROCODONE-ACETAMINOPHEN TABS 77267325198 Active Saman Mendez OD Active LISINOPRIL-HYDROCHLOROTHIAZIDE TABS LISINOPRIL-HYDROCHLOROTHIAZIDE TABS 36310571652 Active Saman Mendez OD Active FOLIC ACID 1 MG TABS 1 by mouth every day FOLIC ACID 76359599820 Active Jess Upright DDS Active AMOXICILLIN 500 MG CAPS 1 by mouth 3 times a day until all taken. AMOXICILLIN 500 MG CAPS 943276 AMOXICILLIN Inactive ALPRAZOLAM TABS ALPRAZOLAM TABS ALPRAZOLAM TABS Inactive MEDI-MECLIZINE TABS MEDI-MECLIZINE TABS MECLIZINE HCL TABS Inactive NEXIUM CPDR NEXIUM CPDR ESOMEPRAZOLE MAGNESIUM CPDR Inactive HYDROCODONE-ACETAMINOPHEN 5-325 MG TABS Take 1 tab Every 4-6h As Needed for pain. HYDROCODONE-ACETAMINOPHEN 5-325 MG TABS 792962 HYDROCODONE-ACETAMINOPHEN Inactive ZITHROMAX Z-SMITH 250 MG TABS Follow directions on package. ZITHROMAX Z-SMITH 250 MG TABS 596777 AZITHROMYCIN Inactive METFORMIN HCL 500 MG TABS 1 by mouth twice a day METFORMIN HCL 500 MG TABS 645568 METFORMIN HCL Inactive METOCLOPRAMIDE HCL TABS METOCLOPRAMIDE HCL TABS METOCLOPRAMIDE HCL TABS Inactive NEXIUM 40 MG CAPDR 1 by mouth daily NEXIUM 40 MG CAPDR 969852 ESOMEPRAZOLE MAGNESIUM Inactive AMOXICILLIN 500 MG CAPS 1 by mouth 3 times a day until all taken. AMOXICILLIN 16140203280 No Longer Active Kit Landaverde DDS Active ALPRAZOLAM TABS ALPRAZOLAM TABS 48763023657 No Longer Active El Alvarenga MD Active MEDI-MECLIZINE TABS MECLIZINE HCL TABS 31465555588 No Longer Active El Alvarenga MD Active NEXIUM CPDR ESOMEPRAZOLE MAGNESIUM CPDR 00218507669 No Longer Active El Alvarenga MD Active HYDROCODONE-ACETAMINOPHEN 5-325 MG TABS Take 1 tab Every 4-6h As Needed for pain. HYDROCODONE-ACETAMINOPHEN 03243216959 No Longer Active Kit Landaverde DDS Active ZITHROMAX Z-SMITH 250 MG TABS Follow directions on package. AZITHROMYCIN 43408357205 No Longer Active Kit Landaverde DDS Active METFORMIN HCL 500 MG TABS 1 by mouth twice a day METFORMIN HCL 38166813088 No Longer Active El Alvarenga MD Active METOCLOPRAMIDE HCL TABS METOCLOPRAMIDE HCL TABS 00901650801 No Longer Active El Alvarenga MD Active NEXIUM 40 MG CAPDR 1 by mouth daily ESOMEPRAZOLE MAGNESIUM 61582211032 No Longer Active El Alvarenga MD Active [...] Procedure Name Date Entry Date Standard Description CPT-73135 Est Patient Intermediate Opth - 09804 14:44:09 CDT CPT-85139 Dispensing Visit (UNLIVSTED OPHTHALMOLOGICAL SERVICE/PROCEDURE) 13:04:20 CDT CPT-65119 Est Patient Intermediate Opth - 63570 15:58:54 ASSEMBLER TESTER
--- OUTSIDE RECORDS SUMMARY | 2018-12-22 15:59 | XMS REPORT | Summary of Care ---
Author Author [facility] [place] Organization [facility] [place] Address Unknown Phone Unavailable Encounter HQ Felyntr_roberta(FIN) [id number] Date(s): 07/17/16 - 07/17/16 [facility] [place] [address] [facility] [place] [phone] Discharge Disposition: Home or Self Care Attending Physician: WednesdayMaya MD Vital Signs No data available for this section Problem List Condition Effective Dates Status Health Status Informant Arthritis(Confirmed) Active Carpal 2011 Active tunnel(Confirmed) Diarrhea(Confirmed) Active Gastric bypass Active operation(Confirmed) GERD - Active Gastro-esophageal reflux disease(Confirmed) Hypertension(Confirm Active ed) PE - Pulmonary Active embolism(Confirmed) Allergies, Adverse Reactions, Alerts Substance Reaction Severity Status aspirin Rash Active Medications No data available for this section Results No data available for this section Immunizations No data available for this section Procedures No data available for this section Social History No data available for this section Assessment and Plan No data available for this section
--- OUTSIDE RECORDS SUMMARY | 2018-12-22 15:59 | XMS REPORT | Summary of Care ---
Author Author JOHNATHON Neurosurgery [facility] Organization [facility] Neurosurgery [facility] Address Unknown Phone Unavailable Encounter HQ Bing_roberta(FIN) [id number] Date(s): 08/30/17 - 08/31/17 [facility] Neurosurgery [facility] [address] [facility], [address] [address] [phone] Vital Signs [...]
--- OUTSIDE RECORDS SUMMARY | 2018-12-22 15:59 | XMS REPORT | Summary of Care ---
Author Author [facility] Organization [facility] Address Unknown Phone Unavailable Encounter HARJEET Melgar(BERTHA) [id number] Date(s): 08/04/16 - 08/04/16 [facility] [address] [place], [place] [address]- [phone] Discharge Disposition: Home or Self Care Attending Physician: Silvano Gregorio MD Referring Physician: Silvano Gregorio MD Vital Signs 1 2 3 Most recent to oldest [Reference Range]: 160.02 cm (07/29/16 4:08 PM) Height 174/71 mmHg *HI* (08/04/16 12:15 PM) 178/76 mmHg *HI* (08/04/16 12:00 PM) 182/79 mmHg *HI* (08/04/16 11:25 AM) Blood Pressure [90-140/60-90 mmHg] 18 BRMIN (08/04/16 12:15 PM) 18 BRMIN (08/04/16 11:25 AM) 21 BRMIN *HI* (08/04/16 10:55 AM) Respiratory Rate [14-20 BRMIN] 68 bpm (08/04/16 5:28 AM) Peripheral Pulse Rate [60-100 bpm] 160 kg (07/29/16 4:08 PM) Weight 62.48 m2 (07/29/16 4:08 PM) Body Mass Index Problem List Condition Effective Dates Status Health Status Informant Apnea(Confirmed) Resolved Arthritis(Confirmed) Active Carpal 2011 Active tunnel(Confirmed) Diarrhea(Confirmed) Active Herniation of Resolved fascia(Confirmed)1 Gastric bypass Active operation(Confirmed) GERD - Active Gastro-esophageal reflux disease(Confirmed) Hypertension(Confirm Active ed) Meningioma(Confirmed Resolved ) PE - Pulmonary Active embolism(Confirmed) Bypass graft Resolved stenosis(Confirmed)2 1repair 2gastro Allergies, Adverse Reactions, Alerts Substance Reaction Severity Status aspirin Rash Active Medications acetaminophen 325 mg, 1 tab, Route: PO, Drug form: TAB, Q4H, Dosing Weight 160, kg, PRN Pain S core 1-3, Start date: 08/04/16 8:16:00 SENIOR STACK ENGINEER, Duration: 30 day, Stop date: 7 8:15:00 CDT Notes: Do not exceed 4 gm/day. (Same as: Tylenol) Start Date: 08/04/16 Stop Date: 08/04/16 Status: Discontinued acetaminophen-hydrocodone 325 mg-5 mg oral tablet 2 tab, Route: PO, Drug Form: TAB, Dosing Weight 160, kg, Q4H, PRN Pain Score 7-1 0, Start date: 08/04/16 8:16:00 SENIOR STACK ENGINEER, Duration: 30 day, Stop date: 09/03/16 8:15: 00 CDT Notes: (Same as: [place] 325/5) Do not exceed 4gm/day of acetaminophen. Start Date: 08/04/16 Stop Date: 08/04/16 Status: Discontinued acetaminophen-hydrocodone 325 mg-5 mg oral tablet 1 tab, Route: PO, Drug Form: TAB, Dosing Weight 160, kg, Q4H, PRN Pain Score 4-6 , Start date: 08/04/16 8:16:00 SENIOR STACK ENGINEER, Duration: 30 day, Stop date: 09/03/16 8:15:0 0 CDT Notes: (Same as: [place] 325/5) Do not exceed 4gm/day of acetaminophen. Start Date: 08/04/16 Stop Date: 08/04/16 Status: Discontinued bupivacaine 0.25%-epinephrine 1:200,000 injectable solution 30 mL, Route: MISC, Drug Form: INJ, Dosing Weight 160, kg, ONCALL, Start date: 0 08/04/16 6:00:00 SENIOR STACK ENGINEER, Duration: 1 doses or times, Stop date: 08/05/16 0:00:00 SENIOR STACK ENGINEER Notes: (bupivacaine-epi 0.25%-1:200,000 30 ml VL) Not for use in continuous inf usion. (Same As: Marcaine w/Epi) Start Date: 08/04/16 Stop Date: 08/04/16 Status: Completed dexamethasone 6 mg, 0.6 mL, Route: IVP, Drug form: INJ, ONCE, Dosing Weight 160, kg, Start elliot e: 08/04/16 5:10:00 SENIOR STACK ENGINEER, Stop date: 08/04/16 5:10:00 SENIOR STACK ENGINEER Notes: MEDICATION WASTE Product Size: 10 mgProduct Wasted: _4__ mg Start Date: 08/04/16 Stop Date: 08/04/16 Status: Completed famotidine 20 mg, 2 mL, Route: IVP, Drug form: INJ, ONCE, Dosing Weight 160, kg, Start date : 08/04/16 5:10:00 SENIOR STACK ENGINEER, Stop date: 08/04/16 5:10:00 SENIOR STACK ENGINEER Notes: (Same as: Pepcid)Can be dilute in 5-10cc NS IVP: Slow IV push over at le ast 2 minutes. Start Date: 08/04/16 Stop Date: 08/04/16 Status: Completed fentaNYL 50 microgram, 1 mL, Route: IV, Drug form: INJ, ONCE, Dosing Weight 160, kg, PRN Pain Score 7-10, Start date: 08/04/16 6:14:00 SENIOR STACK ENGINEER, Pediatric Dosing; For procedu re; > 50 kg Notes: (Same as: Sublimaze) Preservative free. Start Date: 08/04/16 Stop Date: 08/04/16 Status: Completed fentaNYL 50 microgram, 1 mL, Route: IVP, Drug form: INJ, ONCALL, Dosing Weight 160, kg, P riority: Routine, Start date: 08/04/16 6:00:00 SENIOR STACK ENGINEER, Duration: 1 doses or times, Stop date: 08/05/16 0:00:00 SENIOR STACK ENGINEER Notes: (Same as: Sublimaze) Preservative free. Start Date: 08/04/16 Stop Date: 08/04/16 Status: Completed fentaNYL 25 microgram, 0.5 mL, Route: IVP, Drug form: INJ, Q1H, Dosing Weight 160, kg, GA N Pain Score 6-10, Priority: Routine, Start date: 08/04/16 5:10:00 SENIOR STACK ENGINEER, Duration : 1 doses or times, Stop date: Limited # of times Notes: (Same as: Sublimaze) Preservative free. Start Date: 08/04/16 Stop Date: 08/04/16 Status: Discontinued ondansetron 4 mg, 2 mL, Route: IVP, Drug form: INJ, Q6H, Dosing Weight 160, kg, PRN Nausea & Vomiting, Start date: 08/04/16 5:10:00 SENIOR STACK ENGINEER, Duration: 30 day, Stop date: 5:09:00 CDT Notes: (Same as: Zofran) MEDICATION WASTE Product Size: 4 mgProduct Was santo: _0__ mg Start Date: 08/04/16 Stop Date: 08/04/16 Status: Discontinued Polysporin topical ointment 1 appl, Route: TOP, ONCALL, Drug form: OINT, Priority: Routine, Start date: 07/22 10/05 6:00:00 SENIOR STACK ENGINEER, Duration: 1 doses or times, Stop date: 08/05/16 0:00:00 SENIOR STACK ENGINEER Notes: (Same As: Polysporin) Start Date: 08/04/16 Stop Date: 08/04/16 Status: Completed promethazine 25 mg, 1 mL, Route: IVPB, Drug form: INJ, Q6H, Dosing Weight 160, kg, PRN Nausea & Vomiting, Start date: 08/04/16 5:10:00 SENIOR STACK ENGINEER, Duration: 30 day, Stop date: 09/03/16 5:09:00 CDT Notes: Do not give IV push. (Same as: Phenergan) Start Date: 08/04/16 Stop Date: 08/04/16 Status: Discontinued sodium chloride 0.9% 1000 ml INJ 1,000 mL 1,000 mL, Rate: 50 ml/hr, Infuse over: 20 hr, Route: IV, Dosing Weight 160 kg, T otal Volume: 1,000, Priority: Routine, Start date: 08/04/16 8:16:00 SENIOR STACK ENGINEER, Duratio n: 30 day, Stop date: 09/03/16 8:15:00 CDT Start Date: 08/04/16 Stop Date: 08/04/16 Status: Discontinued sodium chloride 0.9% 1000 ml INJ 1,000 mL 1,000 mL, Rate: 50 ml/hr, Infuse over: 20 hr, Route: IV, Dosing Weight 160 kg, T otal Volume: 1,000, Priority: Routine, Start date: 08/04/16 5:10:00 SENIOR STACK ENGINEER, Duratio n: 30 day, Stop date: 09/03/16 5:09:00 CDT Start Date: 08/04/16 Stop Date: 08/04/16 Status: Discontinued Results CHEM PANEL Most recent to 1 oldest [Reference Range]: Creatinine Lvl 0.91 mg/dL [0.50-1.40 mg/dL] (08/04/16 5:39 AM) eGFR 71 mL/min/1.73m2 1 *NA* (08/04/16 5:39 AM) BUN [7-22 mg/dL] 14 mg/dL (08/04/16 5:39 AM) 1Result Comment: The eGFR is calculated using the [...] from the National Kidney Disease Education Program ( NKDEP) which additionally recommends that when the eGFR is used in patients with extremes of body mass index for purposes of drug dosing, the eGFR should be mul tiplied by the estimated BMI. ENDOCRINOLOGY Most recent to 1 oldest [Reference Range]: S Preg [Negative] Negative *NA* (08/04/16 5:39 AM) Immunizations No data available for this section [...]
[2018-12-22 16:58] LABS: ABG HCO3 22 mmol/L (23-28); ABG PCO2 44 mmHg (41-51); ABG PH 7.31 (7.31-7.41); ABG PO2 78 mmHg (80-105)
--- NOTE | 2018-12-22 17:03 | NUR ---
lab was called to come and draw this pt. iv access obtained. dr. danielson informed re delay. abg's done and pending per r.t.
--- NOTE | 2018-12-22 17:58 | NUR ---
ekg/labs and urine done and sent off
--- NOTE | 2018-12-22 18:17 | Diagnostic Imaging Report ---
EXAMINATION: CHEST SINGLE (PORTABLE) INDICATION: ^SOB ^[id number] ^[id number] COMPARISON: 10/18/2017 FINDINGS: AP view TUBES and LINES: None. LUNGS: Limited by body habitus and low lung volumes. Central vascular congestion. PLEURA: No significant pleural effusion or pneumothorax. HEART AND MEDIASTINUM: The cardiomediastinal silhouette is enlarged. BONES AND SOFT TISSUES: No acute osseous lesion. Soft tissues are unremarkable. UPPER ABDOMEN: No free air under the diaphragm. IMPRESSION: Enlarged cardiomediastinal silhouette and pulmonary vascular congestion, accentuated by low lung volumes. Signed by: Dr. Ha Gunter MD on 12/22/2018 6:14 PM
[2018-12-22 18:38] LABS: BASOPHILS % 0.5 % (0.0-1.0); EOSINOPHILS # (AUTO) 0.3 (0.0-0.4); HEMATOCRIT 41.2 % (34.2-44.1); HEMOGLOBIN 12.7 g/dL (12.0-16.0); LYMPHOCYTES # (AUTO) 1.7 (1.0-3.2); LYMPHOCYTES % 21.4 % (18.0-39.1); MEAN CORPUSCULAR HEMOGLOBIN 31.3 pg (28-32); MEAN CORPUSCULAR HGB CONC 30.8 g/dL (31-35); MEAN CORPUSCULAR VOLUME 101.5 fL (81-99); MONOCYTES # (AUTO) 0.6 (0.2-0.8); MONOCYTES % 7.2 % (4.4-11.3); NEUTROPHILS # (AUTO) 5.4 (2.1-6.9); NEUTROPHILS % 66.8 % (38.7-80.0); PLATELET COUNT 195 x10e3/uL (140-360); RED BLOOD COUNT 4.06 x10e6/uL (3.6-5.1); RED CELL DISTRIBUTION WIDTH 13.7 % (11.7-14.4)
[2018-12-22 18:43] LABS: INR 0.87; PROTHROMBIN TIME 12.3 seconds (11.9-14.5)
[2018-12-22 18:43] LABS: BILIRUBIN,URINE SMALL (NEGATIVE); CLARITY,URINE CLOUDY (CLEAR); COLOR,URINE YELLOW (YELLOW); KETONES,URINE TRACE (NEGATIVE); LEUKOCYTE ESTERASE ,URINE NEGATIVE (NEGATIVE); NITRITE,URINE NEGATIVE (NEGATIVE); PROTEIN,URINE DIPSTICK TRACE (NEGATIVE); URINE UROBILINOGEN 1 mg/dL (0.2 - 1)
[2018-12-22 18:44] LABS: PARTIAL THROMBOPLASTIN TIME 39.4 seconds (23.8-35.5)
[2018-12-22 18:50] LABS: BACTERIA,URINE MANY /HPF; EPITHELIAL CELLS,URINE MODERATE /LPF; RBC,URINE 0-5 /HPF (0-5)
[2018-12-22 18:51] LABS: ALANINE AMINOTRANSFERASE 10 IU/L (0-55); ALBUMIN 3.6 g/dL (3.5-5.0); ALBUMIN/GLOBULIN RATIO 1.5 (0.8-2.0); ALKALINE PHOSPHATASE 86 IU/L (40-150); ANION GAP 12.2 mmol/L (8-16); BLOOD UREA NITROGEN 13 mg/dL (7-26); BUN/CREATININE RATIO 16 (6-25); CALCIUM 8.6 mg/dL (8.4-10.2); CARBON DIOXIDE 24 mmol/L (22-29); CHLORIDE 109 mmol/L (98-107); CREATINE KINASE 45 IU/L (29-168); CREATININE, SERUM 0.79 mg/dL (0.57-1.11); EST GLOMERULAR FILTRATION RATE > 60 ML/MIN (60-); GLUCOSE 93 mg/dL (74-118); MAGNESIUM 2.4 MG/DL (1.3-2.1); POTASSIUM 4.2 mmol/L (3.5-5.1); SODIUM 141 mmol/L (136-145)
[2018-12-22 18:51] LABS: AMORPHOUS SEDIMENT,URINE MODERATE (FEW)
[2018-12-22 19:00] VITALS: BP 110/65
== END 2018-12-22 19:15 | disposition home or self-care (01) ==
LOC: ER 15:54
DX: R53.1 Weakness (principal); N30.90 Cystitis, unspecified without hematuria
CPT/HCPCS: 36415; 36600; 71045; 80053; 81001; 82550; 82553; 82805; 83735; 83880; 84484; 85025; 85610; 85730; 87040; 87086; 87186; 93005; 99284

== ENCOUNTER 2020-09-03 16:05 | Inpatient (IN) | payer MEDICARE, OTHER ==
[~2020-09-03] VITALS: Ht 157.5 cm; Wt 140.6 kg
[2020-09-03] MEDS ORDERED: FAMOTIDINE 20 MG/2 ML VIAL IV STA (17:04)
[2020-09-03] MEDS ORDERED: SODIUM CHLORIDE 0.9% 1000ML 1,000 ML IV SCH (17:15)
[2020-09-03] MEDS ORDERED: IOPAMIDOL 370 MG/ML 200 ML INFUS..BTL INJ ONE (17:50)
[2020-09-03] MEDS ORDERED: DIATRIZOATE MEGL/DIATRIZOA SOD 30 ML BTL PO ONE (17:50)
[2020-09-03] MEDS ORDERED: SODIUM CHLORIDE 0.9% 1000ML 1,000 ML ONE (17:52)
[2020-09-03] MEDS ORDERED: FAMOTIDINE 20 MG/2 ML VIAL IV ONE (17:53)
[2020-09-03] MEDS ORDERED: ONDANSETRON HCL INJ 2MG/ML 2ML 2 MG/ML VIAL IV PRN (20:30)
[2020-09-03] MEDS ORDERED: ONDANSETRON HCL 4 MG ORAL DISINTEGRATING TAB PO ONE (22:15)
[2020-09-04] VITALS (8 sets, daily range): BP systolic 122–137; BP diastolic 60–83
[2020-09-04] MEDS: METOCLOPRAMIDE HCL 10 MG/2ML VIAL IV SCH ×5 (01:41→23:45)
[2020-09-04] MEDS: SODIUM CHLORIDE 0.9% 1000ML 1,000 ML IV SCH ×4 (02:35→23:36)
[2020-09-04 06:12] LABS: BASOPHILS % 0.7 % (0.0-1.0); EOSINOPHILS # (AUTO) 0.3 (0.0-0.4); HEMATOCRIT 36.2 % (34.2-44.1); HEMOGLOBIN 11.4 g/dL (12.0-16.0); LYMPHOCYTES # (AUTO) 2.2 (1.0-3.2); LYMPHOCYTES % 38.6 % (18.0-39.1); MEAN CORPUSCULAR HEMOGLOBIN 31.5 pg (28-32); MEAN CORPUSCULAR HGB CONC 31.5 g/dL (31-35); MONOCYTES # (AUTO) 0.5 (0.2-0.8); NEUTROPHILS # (AUTO) 2.7 (2.1-6.9); NEUTROPHILS % 47.5 % (38.7-80.0); PLATELET COUNT 191 x10e3/uL (140-360); RED BLOOD COUNT 3.62 x10e6/uL (3.6-5.1); RED CELL DISTRIBUTION WIDTH 12.2 % (11.7-14.4)
[2020-09-04 06:34] LABS: ALANINE AMINOTRANSFERASE 8 IU/L (0-55); ALBUMIN 3.1 g/dL (3.5-5.0); ALBUMIN/GLOBULIN RATIO 1.3 (0.8-2.0); ALKALINE PHOSPHATASE 57 IU/L (40-150); ANION GAP 9.5 mmol/L (8-16); BLOOD UREA NITROGEN 8 mg/dL (7-26); BUN/CREATININE RATIO 12 (6-25); CARBON DIOXIDE 24 mmol/L (22-29); CHLORIDE 113 mmol/L (98-107); CREATININE, SERUM 0.68 mg/dL (0.57-1.11); EST GLOMERULAR FILTRATION RATE > 60 ML/MIN (60-); GLUCOSE 80 mg/dL (74-118); POTASSIUM 3.5 mmol/L (3.5-5.1); SODIUM 143 mmol/L (136-145)
[2020-09-04] MEDS: PANTOPRAZOLE 40 MG 10ML VIAL IV SCH ×2 (08:47→17:46)
[2020-09-04] MEDS ORDERED: LIDOCAINE HCL 2% LOCAL INJ 5 ML SDV VIAL INJ ONE (12:27)
[2020-09-04] MEDS ORDERED: PROPOFOL IV EMULSION 10 MG/ML 20 ML VIAL ONE (12:27)
[2020-09-04] MEDS ORDERED: FENTANYL CITRATE/PF 100MCG/2 ML INJ ONE (12:31)
[2020-09-04] MEDS ORDERED: MIDAZOLAM HCL 2 MG/2 ML VIAL ONE (12:31)
[2020-09-04] MEDS ORDERED: ACETAMIN/BUTALBITAL/CAFFEINE TAB PO PRN (17:45)
[2020-09-04] MEDS ORDERED: LAMOTRIGINE25 MG PO (17:57)
[2020-09-04] MEDS ORDERED: CLONAZEPAM0.5 MG PO (17:57)
[2020-09-04] MEDS ORDERED: PLAQUENIL200 MG PO (17:57)
[2020-09-04] MEDS ORDERED: AMBIEN5 MG PO (17:57)
[2020-09-04] MEDS ORDERED: RIFAMPIN300 MG PO (17:57)
[2020-09-04] MEDS ORDERED: DICYCLOMINE HCL20 MG PO (17:57)
[2020-09-04] MEDS ORDERED: ZOLPIDEM TARTRATE 10 MG TAB PO PRN (19:15)
[2020-09-04] MEDS ORDERED: IPRATROPIUM/ALBUTEROL SULFATE 4 GM INH INH SCH (19:15)
[2020-09-04] MEDS ORDERED: ALBUTEROL/IPRATROPIUM 3 ML NEB INH PRN (20:00)
[2020-09-04] MEDS: DICYCLOMINE HCL 20 MG TAB PO SCH (21:00)
[2020-09-04] MEDS: GABAPENTIN 300 MG CAP PO SCH (21:00)
[2020-09-04] MEDS ORDERED: HYDRALAZINE HCL 20 MG/ML VIAL IV PRN (21:15)
[2020-09-04] MEDS ORDERED: POLYETHYLENE GLYCOL 3350 17 GM PACK PO PRN (21:15)
[2020-09-04] MEDS ORDERED: ACETAMINOPHEN 325 MG TAB PO PRN (21:15)
[2020-09-04] MEDS ORDERED: TEMAZEPAM 7.5 MG CAP PO PRN (21:15)
[2020-09-05] VITALS (7 sets, daily range): BP systolic 103–141; BP diastolic 55–84
[2020-09-05] MEDS: METOCLOPRAMIDE HCL 10 MG/2ML VIAL IV SCH ×3 (06:00→18:34)
[2020-09-05 06:19] LABS: BASOPHILS % 0.5 % (0.0-1.0); EOSINOPHILS # (AUTO) 0.2 (0.0-0.4); EOSINOPHILS % 3.4 % (0.0-6.0); HEMATOCRIT 35.2 % (34.2-44.1); HEMOGLOBIN 11.3 g/dL (12.0-16.0); LYMPHOCYTES # (AUTO) 1.3 (1.0-3.2); LYMPHOCYTES % 22.3 % (18.0-39.1); MEAN CORPUSCULAR HEMOGLOBIN 32.6 pg (28-32); MEAN CORPUSCULAR HGB CONC 32.1 g/dL (31-35); MEAN CORPUSCULAR VOLUME 101.4 fL (81-99); MONOCYTES # (AUTO) 0.5 (0.2-0.8); MONOCYTES % 8.2 % (4.4-11.3); NEUTROPHILS # (AUTO) 3.7 (2.1-6.9); NEUTROPHILS % 65.4 % (38.7-80.0); PLATELET COUNT 175 x10e3/uL (140-360); RED BLOOD COUNT 3.47 x10e6/uL (3.6-5.1); RED CELL DISTRIBUTION WIDTH 11.9 % (11.7-14.4)
[2020-09-05 07:04] LABS: ALANINE AMINOTRANSFERASE 6 IU/L (0-55); ALBUMIN 2.5 g/dL (3.5-5.0); ALBUMIN/GLOBULIN RATIO 1.1 (0.8-2.0); ALKALINE PHOSPHATASE 45 IU/L (40-150); BLOOD UREA NITROGEN 6 mg/dL (7-26); BUN/CREATININE RATIO 11 (6-25); CARBON DIOXIDE 22 mmol/L (22-29); CHLORIDE 118 mmol/L (98-107); CHOL/HDL RATIO 3.4 (3.0-3.6); CHOLESTEROL 119 MD/DL (0-199); CREATININE, SERUM 0.54 mg/dL (0.57-1.11); EST GLOMERULAR FILTRATION RATE > 60 ML/MIN (60-); GLUCOSE 81 mg/dL (74-118); HDL CHOLESTEROL 35 MG/DL (40-60); LDL CHOLESTEROL 62 MG/DL (60-130); MAGNESIUM 1.4 MG/DL (1.3-2.1); PHOSPHORUS 3.5 MG/DL (2.3-4.7); SODIUM 145 mmol/L (136-145); TRIGLYCERIDES 108 MG/DL (0-149)
[2020-09-05 07:05] LABS: THYROID STIMULATING HORMONE 1.269 uIU/mL (0.350-4.940)
[2020-09-05 07:06] LABS: FERRITIN 32.34 ng/mL (4.63-204.00)
[2020-09-05 07:09] LABS: CALCIUM 6.9 mg/dL (8.4-10.2)
[2020-09-05] MEDS: LOSARTAN POTASSIUM 100 MG TAB PO SCH (09:16)
[2020-09-05] MEDS: PANTOPRAZOLE SOD 40 MG TABEC PO SCH (09:16)
[2020-09-05] MEDS: MECLIZINE HCL 12.5 MG TAB PO SCH (09:16)
[2020-09-05] MEDS: DOCUSATE SODIUM 100 MG CAP PO SCH ×2 (09:16→15:58)
[2020-09-05] MEDS: DICYCLOMINE HCL 20 MG TAB PO SCH ×3 (09:16→20:31)
[2020-09-05] MEDS: DULOXETINE HCL 30 MG DELAYED RELEASE PO SCH (09:17)
[2020-09-05] MEDS: CLONAZEPAM 0.5 MG TAB PO SCH ×2 (09:17→15:59)
[2020-09-05] MEDS: HYDROXYCHLOROQUINE SULFATE 200 MG TAB PO SCH (09:18)
[2020-09-05] MEDS: GABAPENTIN 300 MG CAP PO SCH ×3 (09:18→20:31)
[2020-09-05] MEDS: MULTIVITAMINS/MINERALS TAB PO SCH (09:18)
[2020-09-05] MEDS ORDERED: MAGNESIUM SULFATE 2GM/50ML 50 ML IV ONE ×2 (09:35→11:35)
[2020-09-05] MEDS: LAMOTRIGINE 25 MG TAB PO SCH ×2 (10:45→16:00)
[2020-09-05] MEDS ORDERED: POTASSIUM CHLORIDE 20 MEQ TAB CR PO ONE (13:35)
[2020-09-05] MEDS ORDERED: TEMAZEPAM 15 MG CAP PO PRN (19:15)
[2020-09-05] MEDS ORDERED: TRAMADOL HCL 50 MG TAB PO PRN (20:15)
[2020-09-05] MEDS: SODIUM CHLORIDE 0.9% 1000ML 1,000 ML IV SCH (20:15)
[2020-09-06 00:19] VITALS: BP 129/99
[2020-09-06 05:14] VITALS: BP 126/65
[2020-09-06] MEDS: METOCLOPRAMIDE HCL 10 MG/2ML VIAL IV SCH ×3 (05:32→12:11)
[2020-09-06 06:19] LABS: BASOPHILS % 0.4 % (0.0-1.0); EOSINOPHILS # (AUTO) 0.2 (0.0-0.4); EOSINOPHILS % 4.3 % (0.0-6.0); HEMATOCRIT 39.1 % (34.2-44.1); HEMOGLOBIN 12.5 g/dL (12.0-16.0); LYMPHOCYTES # (AUTO) 1.2 (1.0-3.2); LYMPHOCYTES % 24.7 % (18.0-39.1); MONOCYTES # (AUTO) 0.4 (0.2-0.8); MONOCYTES % 8.3 % (4.4-11.3); NEUTROPHILS # (AUTO) 2.9 (2.1-6.9); NEUTROPHILS % 62.1 % (38.7-80.0); PLATELET COUNT 196 x10e3/uL (140-360); RED BLOOD COUNT 3.91 x10e6/uL (3.6-5.1); RED CELL DISTRIBUTION WIDTH 11.9 % (11.7-14.4)
[2020-09-06 07:06] LABS: ALANINE AMINOTRANSFERASE 32 IU/L (0-55); ALBUMIN 3.2 g/dL (3.5-5.0); ALBUMIN/GLOBULIN RATIO 1.2 (0.8-2.0); ALKALINE PHOSPHATASE 117 IU/L (40-150); ANION GAP 13.9 mmol/L (8-16); BLOOD UREA NITROGEN < 5 mg/dL (7-26); CALCIUM 8.3 mg/dL (8.4-10.2); CARBON DIOXIDE 27 mmol/L (22-29); CHLORIDE 109 mmol/L (98-107); CREATININE, SERUM 0.65 mg/dL (0.57-1.11); EST GLOMERULAR FILTRATION RATE > 60 ML/MIN (60-); GLUCOSE 95 mg/dL (74-118); SODIUM 146 mmol/L (136-145)
[2020-09-06 07:17] LABS: BUN/CREATININE RATIO 8 (6-25)
[2020-09-06 07:20] LABS: POTASSIUM 3.9 mmol/L (3.5-5.1)
[2020-09-06] MEDS: MECLIZINE HCL 12.5 MG TAB PO SCH (08:28)
[2020-09-06] MEDS: DICYCLOMINE HCL 20 MG TAB PO SCH (08:28)
[2020-09-06] MEDS: DOCUSATE SODIUM 100 MG CAP PO SCH (08:28)
[2020-09-06] MEDS: PANTOPRAZOLE SOD 40 MG TABEC PO SCH (08:28)
[2020-09-06] MEDS: DULOXETINE HCL 30 MG DELAYED RELEASE PO SCH (08:29)
[2020-09-06] MEDS: LOSARTAN POTASSIUM 100 MG TAB PO SCH (08:29)
[2020-09-06] MEDS: CLONAZEPAM 0.5 MG TAB PO SCH (08:29)
[2020-09-06] MEDS: LAMOTRIGINE 25 MG TAB PO SCH (08:29)
[2020-09-06] MEDS: HYDROXYCHLOROQUINE SULFATE 200 MG TAB PO SCH (08:30)
[2020-09-06] MEDS: MULTIVITAMINS/MINERALS TAB PO SCH (08:30)
[2020-09-06] MEDS: GABAPENTIN 300 MG CAP PO SCH (08:30)
[2020-09-06 08:36] VITALS: BP 144/76
[2020-09-06 12:16] VITALS: BP 133/85
[2020-09-06] MEDS ORDERED: PANTOPRAZOLE SO40 MG PO (13:07)
== END 2020-09-06 15:39 | disposition home or self-care (01) | DRG 381 ==
LOC: FSED 16:45 → ERHOLD 20:31 → MED/SURG3 23:44 → OBSVTOIN 09-05 09:36
PROVIDERS: ADMIT Internal Medicine; ATTEND Internal Medicine
PROC: 0DJ08ZZ Inspection of Upper Intestinal Tract, Via Natural or Artificial Opening Endoscopic (ICD-10-PCS; principal; 2020-09-04 15:30)
DX: K31.1 Adult hypertrophic pyloric stenosis (principal); Z68.43 Body mass index [BMI] 50.0-59.9, adult; I50.32 Chronic diastolic (congestive) heart failure; K21.00 Gastro-esophageal reflux disease with esophagitis, without bleeding; I10 Essential (primary) hypertension; J44.9 Chronic obstructive pulmonary disease, unspecified; F32.9 Major depressive disorder, single episode, unspecified; M19.90 Unspecified osteoarthritis, unspecified site; E78.5 Hyperlipidemia, unspecified; E66.01 Morbid (severe) obesity due to excess calories; I11.0 Hypertensive heart disease with heart failure; G40.909 Epilepsy, unspecified, not intractable, without status epilepticus; Z20.822 Contact with and (suspected) exposure to COVID-19; G47.33 Obstructive sleep apnea (adult) (pediatric); K44.9 Diaphragmatic hernia without obstruction or gangrene; K21.9 Gastro-esophageal reflux disease without esophagitis; F17.200 Nicotine dependence, unspecified, uncomplicated
CPT/HCPCS: 36415; 36569; 43239; 71045; 74176; 80053; 80061; 81003; 82607; 82728; 82746; 83036; 83540; 83735; 84100; 84443; 84466; 85025; 85045; 93306; 99284; G0378; J2001; J2250; J2765; J3010; J3475; J7030; Q0162; Q9967; U0002

== ENCOUNTER 2021-05-12 16:18 | Emergency (ER) | payer MEDICARE, OTHER ==
[~2021-05-12] VITALS: Ht 157.5 cm; Wt 136.1 kg
[~2021-05-12 16:18] MED LIST changes: +LAMOTRIGINE25 MG PO; +PLAQUENIL200 MG PO
[2021-05-12] MEDS ORDERED: ULTRAM50 MG PO ×2 (18:40→18:46)
== END 2021-05-12 18:56 | disposition home or self-care (01) ==
LOC: FSED 16:24
DX: R07.89 Other chest pain (principal); S22.42XA Multiple fractures of ribs, left side, initial encounter for closed fracture; R91.8 Other nonspecific abnormal finding of lung field; K57.90 Diverticulosis of intestine, part unspecified, without perforation or abscess without bleeding
CPT/HCPCS: 70450; 71250; 74176; 99283

== ENCOUNTER 2021-08-30 15:57 | Emergency (ER) | payer MEDICARE, OTHER ==
[~2021-08-30] VITALS: Ht 154.9 cm; Wt 133.8 kg
[~2021-08-30 15:57] MED LIST changes: +ULTRAM50 MG PO
[2021-08-30] MEDS ORDERED: NAPROSYN500 MG PO (18:44)
[2021-08-30] MEDS ORDERED: CYCLOBENZAPRINE5 MG PO (18:44)
== END 2021-08-30 18:53 | disposition home or self-care (01) ==
LOC: FSED 16:14
DX: S00.83XA Contusion of other part of head, initial encounter (principal); S13.4XXA Sprain of ligaments of cervical spine, initial encounter; S40.011A Contusion of right shoulder, initial encounter; W01.0XXA Fall on same level from slipping, tripping and stumbling without subsequent striking against object, initial encounter; Y93.01 Activity, walking, marching and hiking; Y92.89 Other specified places as the place of occurrence of the external cause; I10 Essential (primary) hypertension; J44.9 Chronic obstructive pulmonary disease, unspecified; E78.5 Hyperlipidemia, unspecified; J45.909 Unspecified asthma, uncomplicated; F41.9 Anxiety disorder, unspecified; K21.9 Gastro-esophageal reflux disease without esophagitis; E66.01 Morbid (severe) obesity due to excess calories; F17.210 Nicotine dependence, cigarettes, uncomplicated
CPT/HCPCS: 70450; 71046; 72125; 99283

== ENCOUNTER → 2022-03-25 | Day surgery (SDC) | payer MEDICARE ==
[~2022-03-25] MED LIST changes: +ATORVASTATIN CA10 MG PO; +BUSPIRONE HCL10 MG PO; +CLARITIN10 MG PO; +CYCLOBENZAPRINE5 MG PO; +FOLIC ACID0.4 MG PO; +HYDROXYZINE HCL25 MG PO; +IMURAN50 MG PO; +KETAMINE HCL INJ 50 MG/ML 10 ML VIAL ONE; +LUNESTA3 MG PO; +MIDAZOLAM HCL 2 MG/2 ML VIAL ONE; +MONTELUKAST SOD10 MG PO; +NAPROSYN500 MG PO; +PROPOFOL IV EMULSION 10 MG/ML 20 ML VIAL ONE; +PROPOFOL IV EMULSION 50 ML IV ONE; +QUDEXY XR200 MG PO; +STOOL SOFTENER50 MG PO; +TIZANIDINE HCL4 M1 PO; +TRAZODONE HCL50 MG PO; +VITAMIN B122500 MCG PO; +VITAMIN C1000 MG PO; +VITAMIN D350 MCG PO
[2022-03-25 13:08] VITALS: BP 142/76
== END | disposition home or self-care (01) ==
LOC: OR 09:14
PROVIDERS: ATTEND Internal Medicine Gastroenterology
DX: K29.60 Other gastritis without bleeding (principal); K63.5 Polyp of colon; K52.9 Noninfective gastroenteritis and colitis, unspecified; Z98.84 Bariatric surgery status; K44.9 Diaphragmatic hernia without obstruction or gangrene; K31.89 Other diseases of stomach and duodenum; K62.89 Other specified diseases of anus and rectum; K59.00 Constipation, unspecified; K64.8 Other hemorrhoids; Z71.3 Dietary counseling and surveillance; E66.01 Morbid (severe) obesity due to excess calories; G47.33 Obstructive sleep apnea (adult) (pediatric); M32.9 Systemic lupus erythematosus, unspecified; J44.9 Chronic obstructive pulmonary disease, unspecified; N39.0 Urinary tract infection, site not specified; G40.909 Epilepsy, unspecified, not intractable, without status epilepticus; I11.0 Hypertensive heart disease with heart failure; I50.9 Heart failure, unspecified; Z71.89 Other specified counseling; F41.9 Anxiety disorder, unspecified; F32.A Depression, unspecified; F17.210 Nicotine dependence, cigarettes, uncomplicated; Z71.6 Tobacco abuse counseling; Z01.810 Encounter for preprocedural cardiovascular examination; Z79.899 Other long term (current) drug therapy; Z68.42 Body mass index [BMI] 45.0-49.9, adult; Z91.81 History of falling; Z86.16 Personal history of COVID-19; Z80.0 Family history of malignant neoplasm of digestive organs
CPT/HCPCS: 43235; 45380; 83630; 83993; 87045; 87177; 87324; 87328; 87449; 88305; 93005; C9113; J2704; 43239; 45378; 88304; J2250

== ENCOUNTER → 2022-07-24 | Outpatient (CLI) | payer MEDICARE ==
[~2022-07-24] MED LIST changes: -KETAMINE HCL INJ 50 MG/ML 10 ML VIAL ONE; -MIDAZOLAM HCL 2 MG/2 ML VIAL ONE; -PROPOFOL IV EMULSION 10 MG/ML 20 ML VIAL ONE; -PROPOFOL IV EMULSION 50 ML IV ONE
== END ==
LOC: US 07:20
PROVIDERS: ATTEND Internal Medicine Gastroenterology
DX: N39.498 Other specified urinary incontinence (principal); R79.89 Other specified abnormal findings of blood chemistry
CPT/HCPCS: 76705

== ENCOUNTER → 2022-10-21 | Day surgery (SDC) | payer MEDICARE ==
[2022-10-15 13:01] LABS: BASOPHILS % 0.2 % (0.0-1.0); EOSINOPHILS # (AUTO) 0.1 (0.0-0.4); EOSINOPHILS % 2.5 % (0.0-6.0); HEMATOCRIT 38.4 % (34.2-44.1); HEMOGLOBIN 12.1 g/dL (12.0-16.0); LYMPHOCYTES # (AUTO) 1.1 (1.0-3.2); LYMPHOCYTES % 25.1 % (18.0-39.1); MEAN CORPUSCULAR HEMOGLOBIN 33.5 pg (28-32); MEAN CORPUSCULAR HGB CONC 31.5 g/dL (31-35); MEAN CORPUSCULAR VOLUME 106.4 fL (81-99); MONOCYTES # (AUTO) 0.5 (0.2-0.8); MONOCYTES % 10.1 % (4.4-11.3); NEUTROPHILS # (AUTO) 2.8 (2.1-6.9); NEUTROPHILS % 61.7 % (38.7-80.0); PLATELET COUNT 250 x10e3/uL (140-360); RED BLOOD COUNT 3.61 x10e6/uL (3.6-5.1); RED CELL DISTRIBUTION WIDTH 12.2 % (11.7-14.4)
[~2022-10-21] MED LIST changes: +ALBUTEROL SULFATE HFA 8GM INHALATION AEROSOL INH ONE; +GLYCOPYRROLATE INJ 0.2 MG/ML VIAL ONE; +HYOSCYAMINE SULFATE 0.5 MG/ML INJ ONE; +KETAMINE HCL INJ 50 MG/ML 10 ML VIAL ONE; +LACTATED RINGER'S 1,000 ML ONE; +LIDOCAINE HCL 2% LOCAL INJ 5 ML SDV VIAL INJ ONE; +METOCLOPRAMIDE HCL 10 MG/2ML VIAL ONE; +POVIDONE IODINE 0.05% 0.05 % ML PO ONE; +PROPOFOL IV EMULSION 10 MG/ML 20 ML VIAL ONE
[2022-10-21 09:45] VITALS: BP 128/86
== END | disposition home or self-care (01) ==
LOC: OR 07:35
PROVIDERS: ATTEND Internal Medicine Gastroenterology
DX: R10.30 Lower abdominal pain, unspecified (principal); K29.50 Unspecified chronic gastritis without bleeding; D12.4 Benign neoplasm of descending colon; K44.9 Diaphragmatic hernia without obstruction or gangrene; K31.89 Other diseases of stomach and duodenum; K59.09 Other constipation; K57.30 Diverticulosis of large intestine without perforation or abscess without bleeding; K64.8 Other hemorrhoids; Z98.84 Bariatric surgery status; Z71.3 Dietary counseling and surveillance; I10 Essential (primary) hypertension; J44.9 Chronic obstructive pulmonary disease, unspecified; M32.9 Systemic lupus erythematosus, unspecified; M81.0 Age-related osteoporosis without current pathological fracture; F41.9 Anxiety disorder, unspecified; F32.A Depression, unspecified; R56.9 Unspecified convulsions; F17.210 Nicotine dependence, cigarettes, uncomplicated; Z71.6 Tobacco abuse counseling; Z01.810 Encounter for preprocedural cardiovascular examination; Z01.812 Encounter for preprocedural laboratory examination; Z79.899 Other long term (current) drug therapy; Z68.42 Body mass index [BMI] 45.0-49.9, adult; Z86.16 Personal history of COVID-19; Z80.0 Family history of malignant neoplasm of digestive organs
CPT/HCPCS: 36415; 43239; 45385; 85025; 88305; 88342; 93005; C9113; J1980; J2001; J2704; J2765; J7121; 45378; 45380; 88304

== ENCOUNTER → 2022-10-28 | Outpatient (CLI) | payer MEDICARE ==
[~2022-10-28] MED LIST changes: -ALBUTEROL SULFATE HFA 8GM INHALATION AEROSOL INH ONE; -GLYCOPYRROLATE INJ 0.2 MG/ML VIAL ONE; -HYOSCYAMINE SULFATE 0.5 MG/ML INJ ONE; +IOPAMIDOL 370 MG/ML 100 ML INFUS..BTL INJ ONE; -KETAMINE HCL INJ 50 MG/ML 10 ML VIAL ONE; -LACTATED RINGER'S 1,000 ML ONE; -LIDOCAINE HCL 2% LOCAL INJ 5 ML SDV VIAL INJ ONE; -METOCLOPRAMIDE HCL 10 MG/2ML VIAL ONE; -POVIDONE IODINE 0.05% 0.05 % ML PO ONE; -PROPOFOL IV EMULSION 10 MG/ML 20 ML VIAL ONE
[2022-10-28 09:39] LABS: CREATININE, SERUM 0.96 mg/dL (0.57-1.11)
== END ==
LOC: CT 07:32
PROVIDERS: ATTEND Nurse Practitioner
DX: R10.30 Lower abdominal pain, unspecified (principal); R19.4 Change in bowel habit
CPT/HCPCS: 36415; 74177; 82565; 84520; Q9967

== ENCOUNTER → 2023-12-24 | Outpatient (REF) | payer MEDICARE ==
[2023-12-24 12:27] LABS: CREATININE, SERUM 0.42 mg/dL (0.57-1.11)
== END ==
LOC: CT 10:34
PROVIDERS: ATTEND Nurse Practitioner
DX: R11.0 Nausea (principal); R74.8 Abnormal levels of other serum enzymes; R19.7 Diarrhea, unspecified
CPT/HCPCS: 36415; 74177; 82565; 84520; Q9967

== ENCOUNTER → 2024-01-27 | Outpatient (REF) | payer MEDICARE, OTHER ==
[~2024-01-27] MED LIST changes: -IOPAMIDOL 370 MG/ML 100 ML INFUS..BTL INJ ONE
== END ==
LOC: MAMMO 12:09
PROVIDERS: ATTEND Internal Medicine
DX: N64.89 Other specified disorders of breast (principal)
CPT/HCPCS: 77066

== ENCOUNTER 2024-03-08 15:58 | Emergency (ER) | payer MEDICARE, OTHER ==
[~2024-03-08] VITALS: Ht 154.9 cm; Wt 106.1 kg
[2024-03-08 16:04] VITALS: PULSE 82; RESP 20; TEMP 98.1
[2024-03-08] MEDS: SODIUM CHLORIDE 0.9% 1000ML 1,000 ML IV STA (16:30)
[2024-03-08 16:40] LABS: BASOPHILS % 0.3 % (0.0-1.0); EOSINOPHILS % 0.2 % (0.0-6.0); HEMATOCRIT 38.2 % (34.2-44.1); HEMOGLOBIN 12.1 g/dL (12.0-16.0); LYMPHOCYTES # (AUTO) 1.2 (1.0-3.2); LYMPHOCYTES % 8.6 % (18.0-39.1); MEAN CORPUSCULAR HGB CONC 31.7 g/dL (31-35); MEAN CORPUSCULAR VOLUME 101.1 fL (81-99); MONOCYTES # (AUTO) 0.8 (0.2-0.8); MONOCYTES % 5.5 % (4.4-11.3); NEUTROPHILS # (AUTO) 11.8 (2.1-6.9); NEUTROPHILS % 84.3 % (38.7-80.0); PLATELET COUNT 198 x10e3/uL (140-360); RED BLOOD COUNT 3.78 x10e6/uL (3.6-5.1); RED CELL DISTRIBUTION WIDTH 13.2 % (11.7-14.4)
[2024-03-08 16:54] LABS: INR 1.04; PROTHROMBIN TIME 14.1 seconds (11.9-14.5)
[2024-03-08 17:06] LABS: ALBUMIN 2.9 g/dL (3.5-5.0); ALBUMIN/GLOBULIN RATIO 0.9 (0.8-2.0); ANION GAP 13.2 mmol/L (8-16); BILIRUBIN,TOTAL 0.4 mg/dL (0.2-1.2); CALCIUM 9.4 mg/dL (8.4-10.2); CREATININE, SERUM 0.83 mg/dL (0.57-1.11); TOTAL PROTEIN 6.2 g/dL (6.5-8.1)
[2024-03-08 17:16] LABS: POTASSIUM 3.2 mmol/L (3.5-5.1)
[2024-03-08] MEDS ORDERED: VENTOLIN HFA18 GM INH (19:18)
[2024-03-08] MEDS ORDERED: PREDNISONE20 MG PO (19:18)
[2024-03-09 01:49] VITALS: BP 134/74; PULSE 82; RESP 17; TEMP 98.2; O2SAT 98
== END 2024-03-09 01:50 | disposition home or self-care (01) ==
LOC: ER 16:22
DX: R11.2 Nausea with vomiting, unspecified (principal); B34.9 Viral infection, unspecified; I10 Essential (primary) hypertension; J44.9 Chronic obstructive pulmonary disease, unspecified; E78.5 Hyperlipidemia, unspecified; M32.9 Systemic lupus erythematosus, unspecified; J45.909 Unspecified asthma, uncomplicated; K21.9 Gastro-esophageal reflux disease without esophagitis; F41.9 Anxiety disorder, unspecified; F32.A Depression, unspecified; E66.01 Morbid (severe) obesity due to excess calories; Z98.84 Bariatric surgery status
CPT/HCPCS: 36415; 80053; 85025; 85610; 85730; 87400; 99283; J2470; J7030; U0002

== ENCOUNTER → 2025-01-24 | Outpatient (REF) | payer MEDICARE, OTHER ==
[~2025-01-24] MED LIST changes: +PREDNISONE20 MG PO; +VENTOLIN HFA18 GM INH
== END ==
LOC: MAMMO 11:00
PROVIDERS: ATTEND Internal Medicine
DX: R92.8 Other abnormal and inconclusive findings on diagnostic imaging of breast (principal)
CPT/HCPCS: 77066